=== PATIENT | male | born 1945 | race Caucasian/White ===

== ENCOUNTER → 2018-11-02 | Outpatient (CLI) | payer MEDICARE ==
--- NOTE | 2018-11-02 15:03 | REP ---
Sniff test: Fluoroscopy exam. History: Dyspnea. Findings: PA fluoroscopy is performed. At rest, the left hemidiaphragm is elevated with mild gaseous distension of the gastric fundus. With forceful inspiration, sniffing, both leaves of the diaphragm descend although the right descends more rapidly than the left. There is no evidence of paradoxical motion. Fluoroscopy time is 0.3 minutes. Impression: There is no evidence of diaphragmatic paralysis. The left hemidiaphragm is elevated at rest and moves with decreased amplitude but in an appropriate caudal direction with sniffing. Electronically Signed by Juarez Rodas MD 11/02/2018 04:03 P
--- NOTE | 2018-11-02 15:14 | REP ---
Clinical: Dyspnea. Technique: Axial noncontrast images from the thoracic inlet to the upper abdomen with coronal and sagittal re-formations. Findings: Moderate emphysematous changes are appreciated along with minimal primarily basilar and subpleural chronic interstitial changes and scarring. Small scattered calcified nodules noted throughout the bilateral lung wisdom measuring up to approximately 3 mm small 3 mm noncalcified nodule in the anteroapical left lower lobe (image 33). No consolidation. No effusion. No pneumothorax. No significant adenopathy. Mediastinum demonstrates atherosclerotic changes to the thoracic aorta and coronary arteries without aortic aneurysm or cardiomegaly and no pericardial effusion. Surrounding musculoskeletal structures are intact. Limited upper abdomen demonstrates normal bilateral adrenal glands and gallbladder. Impression: 1. Evidence of mild/moderate emphysematous changes and prior chronic granulomatous disease including scattered small calcified nodules. A single noncalcified nodule measuring 3 mm identified in the apical left lower lobe is identified. No prior examinations are available. Consider 9 - 12 month follow-up. Electronically Signed by Michael Ruiz MD 11/02/2018 03:05 P
== END ==
LOC: M RAD 13:36
PROVIDERS: ATTEND Nurse Practitioner Family
DX: R06.00 Dyspnea, unspecified (principal); J43.9 Emphysema, unspecified; I70.0 Atherosclerosis of aorta; I25.10 Atherosclerotic heart disease of native coronary artery without angina pectoris

== ENCOUNTER → 2019-03-20 | Outpatient (CLI) | payer MEDICARE ==
--- NOTE | 2019-03-20 14:37 | REP ---
REASON: Followup noncalcified nodule in the superior segment of the left lower lobe measuring 3 mm on the prior exam. The lack of intravenous contrast decreases the sensitivity of the exam. Mediastinum and pulmonary hilar are unchanged. There are some prominent mediastinal and hilar lymph nodes, however, they retain their reniform shape and fatty hilum. They are all stable. The imaged upper abdomen and imaged osseous structures are unchanged. There is a 3.3 cm sized right renal cyst status quo. There are multiple left renal cysts. There is no change in the imaged osseous structures. Evaluation of the lung wisdom shows a stable nodule in the superior segment of the left lower lobe, however, by my measurements this is closer to 5 mm. The salient point is the fact that it is stable. There are innumerable scattered bilateral calcified granulomas. In the right upper lobe, there is a 6 mm sized noncalcified nodule which was very perceptible on the prior exam and abutting a vascular structure which gave it the appearance of being part of that vascular structure rather than a true nodule. This area measured 4 mm on the prior exam. There are additional numerable scattered 2 and 3 mm sized noncalcified nodules bilaterally. IMPRESSION: 1. There is a new/enlarging nodule in the right upper lobe as described above. According to the revised Fleischner Society criteria, this represents a category 4X lesion since it may have grown since the prior exam. This warrants further assessment with consideration made for PET/CT at this time and/or tissue sampling. Pulmonary consultation is recommended at this time. 2. Scattered numerable tiny calcified and noncalcified nodules. 3. Other findings as described above. Electronically Signed by Mo Bruno DO 03/20/2019 02:57 P
== END ==
LOC: M RAD 12:44
PROVIDERS: ATTEND Nurse Practitioner Family
DX: N28.1 Cyst of kidney, acquired (principal); R91.1 Solitary pulmonary nodule; R06.00 Dyspnea, unspecified; R91.8 Other nonspecific abnormal finding of lung field

== ENCOUNTER → 2019-10-30 | Outpatient (CLI) | payer MEDICARE ==
[2019-10-30 11:37] LABS: ABG BASE EXCESS -7.8 (-2.0-2.0); ABG FIO2 0; ABG HCO3 15.3 MEQ/L (22.0-26.0); ABG MODE OF VENT 0; ABG O2 LITER FLOW 0; ABG O2 SATURATION 97.8 % (95.0-99.0); ABG PARTIAL PRESSURE CO2 26.1 mmHg (35.0-45.0); ABG PARTIAL PRESSURE O2 109.8 mmHg (75.0-100.0); ABG PATIENT RESP RATE 0 /MIN; ABG PEEP 0; ABG PULSE OX 0; ABG STANDARD HCO3 18.2 MEQ/L (22.0-26.0); ABG TCPCO2 0; ABG TCPO2 0; ABG TIDAL VOLUME 0 cc; ABG TOTAL CO2 16.1 MEQ/L (23.0-31.0); ABG pH (ARTERIAL) 7.386 UNITS (7.350-7.450)
== END ==
LOC: M LAB 11:13
PROVIDERS: ATTEND Nurse Practitioner Family
DX: R06.00 Dyspnea, unspecified (principal)

== ENCOUNTER → 2019-11-04 | Outpatient (REF) | payer MEDICARE ==
[2019-11-04 16:32] LABS: BLOOD UREA NITROGEN 22 MG/DL (7-18); CALCIUM LEVEL 8.8 MG/DL (8.8-10.2); CARBON DIOXIDE LEVEL 31 MEQ/L (21-32); CHLORIDE LEVEL 100 MEQ/L (98-107); CREATININE FOR GFR 1.12 MG/DL (0.70-1.30); GLOMERULAR FILTRATION RATE > 60.0 (>42); GLUCOSE, FASTING 185 MG/DL (70-100); SODIUM LEVEL 136 MEQ/L (136-145)
== END ==
LOC: M LABDRAWC 15:59
PROVIDERS: ATTEND Nurse Practitioner Family
DX: R94.2 Abnormal results of pulmonary function studies (principal)

== ENCOUNTER → 2019-12-10 | Outpatient (CLI) | payer MEDICARE ==
[~2019-12-10] MED LIST: ADV250INH INH; CARD360C PO; CETI10CA13 PO; ELIQ5TAB PO; FINA5TAB2 PO; FLOM0.4C39 PO; FOSI40TA3 PO; GLYCCAP PO; KP F1200 PO; METF850T4 PO; NOXI1TAB PO; SIMV20TA22 PO; VITA-55 PO
--- NOTE | 2019-12-10 14:30 | REP ---
REASON: Followup. All priors were reviewed, the latest of which is 06/18/2019, an outside exam. Lack of intravenous contrast decreases the sensitivity of the exam. Once again, there are multiple borderline but stable-appearing mediastinal and hilar lymph nodes. There are no pleural or pericardial effusions. The imaged upper abdomen and imaged osseous structures are unchanged. Evaluation of the lung wisdom shows multiple stable calcified and noncalcified lymph nodes without evidence of a new abnormal nodule, mass, or opacity. These findings have been stable since 03/20/2019 as well as stable since the latest prior exam. IMPRESSION: Multiple nodules, as described above. According to the revised Fleischner Society criteria, yearly CT is recommended. The nodules represent category 2 lesions. Electronically Signed by Mo Bruno DO 12/10/2019 05:26 P
== END ==
LOC: M RAD 09:23
PROVIDERS: ATTEND Nurse Practitioner Family
DX: R91.8 Other nonspecific abnormal finding of lung field (principal)

== ENCOUNTER → 2019-12-20 | Outpatient (REF) | payer MEDICARE ==
[2019-12-20 12:59] LABS: BLOOD UREA NITROGEN 20 MG/DL (7-18); CALCIUM LEVEL 8.6 MG/DL (8.8-10.2); CARBON DIOXIDE LEVEL 29 MEQ/L (21-32); CHLORIDE LEVEL 101 MEQ/L (98-107); CHOLESTEROL LEVEL 111 MG/DL (<200); CHOLESTEROL RISK RATIO 2.466 (<5); CREATININE FOR GFR 1.06 MG/DL (0.70-1.30); GLOMERULAR FILTRATION RATE > 60.0 (>42); GLUCOSE, FASTING 146 MG/DL (70-100); HDL CHOLESTEROL 45 MG/DL (>40); LDL CHOLESTEROL 51 MG/DL (<100); NON-HDL-C 66 MG/DL; POTASSIUM SERUM 4.4 MEQ/L (3.5-5.1); SODIUM LEVEL 137 MEQ/L (136-145); TRIGLYCERIDES LEVEL 74 MG/DL (<150)
[2019-12-20 13:12] LABS: HEMOGLOBIN A1c 6.4 %
[2019-12-20 13:31] LABS: MALB URINE SIEMENS 77.9 MG/L; MAU/CREAT RATIO 56.4 MCG/MG (0.0-30.0)
== END ==
LOC: M SFHCCLAY 08:54
PROVIDERS: ATTEND Family Medicine
DX: E11.42 Type 2 diabetes mellitus with diabetic polyneuropathy (principal); E78.5 Hyperlipidemia, unspecified

== ENCOUNTER → 2020-02-06 | Outpatient (REF) | payer MEDICARE ==
[2020-02-06 19:53] LABS: HEMATOCRIT 42.4 % (42.0-52.0); HEMOGLOBIN 13.9 g/dl (13.5-17.5); MEAN CORPUSCULAR HEMOGLOBIN 28.6 pg (27.0-33.0); MEAN CORPUSCULAR HGB CONC 32.8 g/dl (32.0-36.5); MEAN CORPUSCULAR VOLUME 87.2 fl (80.0-96.0); PLATELET COUNT, AUTOMATED 241 10^3/uL (150-450); RED BLOOD COUNT 4.86 10^6/uL (4.30-6.10)
[2020-02-06 19:59] LABS: WHITE BLOOD COUNT 16.8 10^3/uL (4.0-10.0)
[2020-02-06 20:26] LABS: ATYPICAL LYMPH 9 % (0-5); BASOPHILS 1 % (0-1); LYMPHOCYTES 70 % (16-44); MONOCYTES 2 % (0-5); NEUTROPHILS 18 % (28-66)
[2020-02-06 20:27] LABS: PLATELET ESTIMATE NORMAL (NORMAL)
== END ==
LOC: M LABDRAWC 19:11
PROVIDERS: ATTEND Family Medicine
DX: D72.829 Elevated white blood cell count, unspecified (principal)

== ENCOUNTER → 2020-06-04 | Outpatient (CLI) | payer MEDICARE | LOC: M LABSMTC 12:05 | PROVIDERS: ATTEND Anesthesiology | DX: Z01.812 Encounter for preprocedural laboratory examination (principal); Z20.828 Contact with and (suspected) exposure to other viral communicable diseases ==

== ENCOUNTER 2020-06-09 06:10 | Day surgery (SDC) | payer MEDICARE ==
[~2020-06-09] VITALS: Ht 172.7 cm; Wt 88.5 kg
[2020-06-09] MEDS ORDERED: LR 1,000 ML IV ONE (07:00)
[2020-06-09] MEDS ORDERED: ceFAZolin SOD 2 GM in IV 1 EA IV ONE (07:00)
[2020-06-09] MEDS ORDERED: BUPIVACAINE HCL 0.25% 10ML VIAL As Ordered ONE (07:12)
[2020-06-09] MEDS ORDERED: LIDOCAINE W/EPINEPHRINE 1% 20ML VIAL As Ordered ONE (07:12)
[2020-06-09] MEDS ORDERED: ALBUTEROL SULFATE 2.5 MG/0.5 ML INH NEB SOLN As Ordered ONE (07:16)
[2020-06-09] MEDS ORDERED: ALBUTEROL SULFATE 2.5 MG/0.5 ML INH NEB SOLN INH ONE (07:30)
[2020-06-09] MEDS ORDERED: PHENYLEPHRINE 10MG/ML 1ML VIAL (J2370 PER 1) As Ordered ONE (07:51)
[2020-06-09] MEDS ORDERED: METOCLOPRAMIDE INJ 10MG/2ML VIAL (J2765 PER 1) As Ordered ONE (07:58)
[2020-06-09] MEDS ORDERED: ONDANSETRON 4MG/2ML VIAL As Ordered ONE (07:58)
[2020-06-09] MEDS ORDERED: fentaNYL 250 MCG/5 ML INJECTION (J3010) As Ordered ONE (07:58)
[2020-06-09] MEDS ORDERED: dexameTHASONE 4 MG/ML 1ML VIAL (J1100 PER 1MG) As Ordered ONE (07:58)
[2020-06-09] MEDS ORDERED: ROCURONIUM BROMIDE 50 MG/5 ML VIAL As Ordered ONE (07:58)
[2020-06-09] MEDS ORDERED: SUGAMMADEX SODIUM 500 MG/5 ML VIAL (BRIDION) As Ordered ONE (07:58)
[2020-06-09] MEDS ORDERED: propofoL 200 MG/20 ML VIAL As Ordered ONE (07:58)
[2020-06-09] MEDS ORDERED: LIDOCAINE 2% 100MG/5ML SDV (FOR ANES.) As Ordered ONE (07:58)
[2020-06-09] MEDS ORDERED: MIDAZOLAM INJ 2MG/2ML VIAL (J2250 PER 1MG) As Ordered ONE (07:58)
--- NOTE | 2020-06-09 09:04 | RO ---
OPERATIVE NOTE DATE OF OPERATION: 06/09/2020 PREOPERATIVE DIAGNOSIS: Right inguinal hernia. POSTOPERATIVE DIAGNOSIS: Right inguinal hernia. PROCEDURE: Robotic-assisted right inguinal hernia repair with ProGrip mesh. SURGEON: Ronn Mendes Jr, MD CUSTOM WOOD STAIR BUILDER: Shirin Canas (provided trocar placement, instrument exchange and mesh placement and trocar site closure). EBL: Minimal. FLUIDS: Crystalloid. DISPOSITION: Patient was taken to recovery room awake, alert, and hemodynamically stable. BRIEF OPERATIVE SUMMARY: The patient was taken to the operating room, was given general anesthesia. After adequate anesthesia and preoperative antibiotics were given the patient was prepped and draped in usual sterile fashion. A supraumbilical incision was made with skin knife. Blunt dissection was carried down to fascia. Fascia was entered with Veress needle and abdomen was insufflated to 15 mm of pressure. A dilating 8 mm trocar was placed at this time and the patient was placed in steep Trendelenburg. The robot was docked after two lateral 8 mm trocars were placed under direct visualization. The peritoneum overlying the right inguinal area was brought down with monopolar cut scissors, combination of blunt and sharp dissection was used to dissect out the peritoneum in this area. Once it was dissected adequately down to Gucci's ligament off the cord structures and the hernia sac which had extended down into the inguinal area was reduced. The ProGrip mesh was cut to the appropriate size, was placed and pressed into position. The abdomen was desufflated down to 8 mm of pressure and the peritoneum was closed over the top of this repair and all trocars were removed under direct visualization. 4-0 Vicryl was used to close all incisions. Steri-Strips and dry, sterile dressing was applied. The patient was awakened, extubated and brought to the recovery room awake, alert and hemodynamically stable. Sponge and needle counts correct x2.
[2020-06-09] MEDS ORDERED: oxyCODONE 5MG TAB As Ordered ONE (09:27)
[2020-06-09] MEDS: oxyCODONE 5MG TAB PO PRN ×2 (09:28→09:58)
[2020-06-09] MEDS ORDERED: NORCO, ANEXSIA 5/325MG TABLET (HYDROcodone/ACETAMINOPHEN) PO PRN (09:30)
[2020-06-09] MEDS ORDERED: LR 1,000 ML IV SCH (09:30)
[2020-06-09] MEDS ORDERED: fentaNYL 100 MCG/2 ML INJECTION (J3010) IV PRN (09:30)
[2020-06-09] MEDS ORDERED: HYDROMORPHONE HCL 0.5 MG/ 0.5 ML SYRINGE (J1170 PER 1) IV PRN (09:30)
[2020-06-09] MEDS ORDERED: ONDANSETRON 4MG/2ML VIAL IV PRN (09:30)
[2020-06-09] MEDS ORDERED: NS 1,000 ML IV SCH (09:30)
[2020-06-09] MEDS ORDERED: PHENYLephrine HCL 500 MCG/5 ML (100MCG/ML) SYRINGE (J2370) As Ordered ONE (09:52)
[2020-06-09 11:20] VITALS: BP 136/76
== END 2020-06-09 11:20 | disposition home or self-care (01) ==
LOC: M SDC 06:10
PROVIDERS: ATTEND Surgery
DX: K40.90 Unilateral inguinal hernia, without obstruction or gangrene, not specified as recurrent (principal); I48.91 Unspecified atrial fibrillation; I10 Essential (primary) hypertension; J44.9 Chronic obstructive pulmonary disease, unspecified; E11.9 Type 2 diabetes mellitus without complications; Z79.01 Long term (current) use of anticoagulants; Z79.84 Long term (current) use of oral hypoglycemic drugs; Z79.899 Other long term (current) drug therapy; Z86.73 Personal history of transient ischemic attack (TIA), and cerebral infarction without residual deficits
CPT/HCPCS: 49650; C1781; J0690; J1100; J2250; J2370; J2405; J2765; J3010; S2900

== ENCOUNTER → 2020-07-22 | Outpatient (REF) | payer MEDICARE ==
[2020-07-22 16:37] LABS: BLOOD UREA NITROGEN 24 MG/DL (7-18); CALCIUM LEVEL 8.5 MG/DL (8.8-10.2); CARBON DIOXIDE LEVEL 30 MEQ/L (21-32); CHLORIDE LEVEL 99 MEQ/L (98-107); CREATININE FOR GFR 1.19 MG/DL (0.70-1.30); GLOMERULAR FILTRATION RATE > 60.0 (>42); GLUCOSE, FASTING 214 MG/DL (70-100); POTASSIUM SERUM 4.4 MEQ/L (3.5-5.1); SODIUM LEVEL 135 MEQ/L (136-145)
[2020-07-22 16:49] LABS: MAU/CREAT RATIO 66.4 MCG/MG (0.0-30.0)
[2020-07-22 17:11] LABS: HEMOGLOBIN A1c 6.8 %
== END ==
LOC: M SFHCCLAY 10:00
PROVIDERS: ATTEND Family Medicine
DX: E11.8 Type 2 diabetes mellitus with unspecified complications (principal)

== ENCOUNTER → 2020-08-21 | Outpatient (REF) | payer MEDICARE ==
[2020-08-21 11:43] LABS: BASO # 0.1 10^3/uL (0.0-0.2); BASO % 0.5 % (0.0-1.0); EOS # 0.7 10^3/uL (0.0-0.5); EOS % 2.6 % (0.0-3.0); HEMATOCRIT 44.2 % (42.0-52.0); HEMOGLOBIN 14.5 g/dl (13.5-17.5); LYMPH # 16.8 10^3/uL (1.5-5.0); LYMPH % 65.3 % (24.0-44.0); MEAN CORPUSCULAR HEMOGLOBIN 28.8 pg (27.0-33.0); MEAN CORPUSCULAR HGB CONC 32.8 g/dl (32.0-36.5); MEAN CORPUSCULAR VOLUME 87.9 fl (80.0-96.0); MONO # 2.3 10^3/uL (0.0-0.8); MONO % 8.9 % (2.0-8.0); NEUTROPHILS # 5.7 10^3/uL (1.5-8.5); NEUTROPHILS % 22.2 % (36.0-66.0); PLATELET COUNT, AUTOMATED 250 10^3/uL (150-450); RED BLOOD COUNT 5.03 10^6/uL (4.30-6.10)
[2020-08-21 11:45] LABS: WHITE BLOOD COUNT 25.7 10^3/uL (4.0-10.0)
[2020-08-21 12:30] LABS: ALT/SGPT 36 U/L (12-78); BILIRUBIN,TOTAL 0.6 MG/DL (0.2-1.0); BLOOD UREA NITROGEN 21 MG/DL (7-18); CALCIUM LEVEL 8.7 MG/DL (8.8-10.2); CARBON DIOXIDE LEVEL 30 MEQ/L (21-32); CHLORIDE LEVEL 102 MEQ/L (98-107); CREATININE FOR GFR 1.09 MG/DL (0.70-1.30); GLOMERULAR FILTRATION RATE > 60.0 (>42); GLUCOSE, FASTING 153 MG/DL (70-100); POTASSIUM SERUM 4.8 MEQ/L (3.5-5.1); SODIUM LEVEL 136 MEQ/L (136-145); TOTAL PROTEIN 7.3 GM/DL (6.4-8.2)
== END ==
LOC: M LABDRAWC 11:18
PROVIDERS: ATTEND Internal Medicine Hematology & Oncology
DX: Z12.89 Encounter for screening for malignant neoplasm of other sites (principal)

== ENCOUNTER → 2020-11-25 | Outpatient (REF) | payer MEDICARE ==
[~2020-11-25] MED LIST changes: +[UNRECOGNIZED DRUG - CODE] PO
[2020-11-25 11:41] LABS: BASO # 0.2 10^3/uL (0.0-0.2); BASO % 0.5 % (0.0-1.0); EOS # 0.5 10^3/uL (0.0-0.5); EOS % 1.8 % (0.0-3.0); HEMATOCRIT 43.2 % (42.0-52.0); HEMOGLOBIN 13.8 g/dl (13.5-17.5); LYMPH # 21.3 10^3/uL (1.5-5.0); LYMPH % 72.5 % (24.0-44.0); MEAN CORPUSCULAR HGB CONC 31.9 g/dl (32.0-36.5); MEAN CORPUSCULAR VOLUME 87.6 fl (80.0-96.0); MONO # 2.1 10^3/uL (0.0-0.8); MONO % 7.1 % (2.0-8.0); NEUTROPHILS # 5.3 10^3/uL (1.5-8.5); NEUTROPHILS % 17.8 % (36.0-66.0); PLATELET COUNT, AUTOMATED 239 10^3/uL (150-450); RED BLOOD COUNT 4.93 10^6/uL (4.30-6.10); WHITE BLOOD COUNT 29.4 10^3/uL (4.0-10.0)
[2020-11-25 12:09] LABS: ALT/SGPT 37 U/L (12-78); BILIRUBIN,TOTAL 0.8 MG/DL (0.2-1.0); BLOOD UREA NITROGEN 19 MG/DL (7-18); CALCIUM LEVEL 8.7 MG/DL (8.8-10.2); CARBON DIOXIDE LEVEL 27 MEQ/L (21-32); CHLORIDE LEVEL 101 MEQ/L (98-107); CREATININE FOR GFR 1.07 MG/DL (0.70-1.30); GLOMERULAR FILTRATION RATE > 60.0 (>42); GLUCOSE, FASTING 144 MG/DL (70-100); POTASSIUM SERUM 4.2 MEQ/L (3.5-5.1); SODIUM LEVEL 133 MEQ/L (136-145); TOTAL PROTEIN 7.6 GM/DL (6.4-8.2)
== END ==
LOC: M LAB REF 11:10
PROVIDERS: ATTEND Internal Medicine Hematology & Oncology
DX: C91.90 Lymphoid leukemia, unspecified not having achieved remission (principal)

== ENCOUNTER → 2020-12-11 | Outpatient (CLI) | payer MEDICARE ==
[~2020-12-11] MED LIST changes: +ALLO100T PO; +CALQ100C PO; -FOSI40TA3 PO; +FOSI40TA59 PO; +IMBR1CAP PO
== END ==
LOC: M PLAIMG 12:56
PROVIDERS: ATTEND Nurse Practitioner Family
DX: R91.8 Other nonspecific abnormal finding of lung field (principal)

== ENCOUNTER → 2020-12-29 | Outpatient (CLI) | payer MEDICARE ==
[~2020-12-29] MED LIST changes: -ALLO100T PO; -CALQ100C PO; +FOSI40TA3 PO; -FOSI40TA59 PO; +GASTROGRAFIN SOLUTION 30ML (Q9963) As Ordered ONE; -IMBR1CAP PO; +ISOVUE-370 76% 100ML VIAL As Ordered ONE; -[UNRECOGNIZED DRUG - CODE] PO
--- NOTE | 2020-12-29 13:42 | REP ---
INDICATION: H/O CLL. COMPARISON: Comparison is made with the study done just 12 days previously on December 11, 2020. Comparison is also made with prior study from December 10, 2019.. TECHNIQUE: Helical scanning is acquired following the intravenous injection of 100 mL of Isovue 370. 3 mm axial images re-formatted. Coronal and sagittal MPR images are provided. FINDINGS: Digital preliminary vice president of software development radiograph is unremarkable. There are numerous bilateral calcified granulomatous nodules in the lung wisdom. There is a 5 mm noncalcified nodule in the left lower lobe superior segment seen on page 09/01/1982 in series 204 of today's study. This is unchanged from December 10, 2019 study. There is a noncalcified 6 mm nodule seen2 in the right upper lobe displayed on page 01/01/1983 series 204. This is unchanged as well. No new noncalcified pulmonary nodule is appreciated. No pleural or pericardial effusion is seen. There is fatty infiltration of the liver. Normal adrenal glands are seen. There is a accessory splenule in the left upper quadrant. There is AP window region mediastinal lymphadenopathy and mild right hilar and precarinal lymphadenopathy. This is slightly more prominent than on the December 10, 2019 study. Bilateral axillary adenopathy is more prominent than on the December 10, 2019 study. This is bilateral. There are scattered small supraclavicular and lower cervical lymph nodes. Vascular calcification is observed. IMPRESSION: There is some progression in bilateral axillary lymphadenopathy when compared with the December 10, 2019 study. AP window region mediastinal lymph nodes are very slightly more prominent. No change from the most recent study of December 11, 2020 <Electronically signed by Octavio Rodas > 12/29/20 [id number]
--- NOTE | 2020-12-29 13:58 | REP ---
INDICATION: H/O CLL. COMPARISON: None. TECHNIQUE: Standard helical technique after the intravenous administration of 100 cc Isovue 370. Oral bowel preparatory contrast was also administered prior to the exam. FINDINGS: The liver, gallbladder, spleen, pancreas, and adrenal glands are within normal limits. There are multiple bilateral renal cysts of various sizes and all having water density Hounsfield unit readings with no measurable contrast-enhancement. There is para-aortic adenopathy with the largest node have a a short axis dimension of 1.5 cm but retaining its fatty hilum. There is a large retrocaval node which measures 2.6 cm long axis by 1 cm short axis and having a reniform shape. Other smaller retroperitoneal lymph nodes are also noted. Multiple nonenlarged lymph nodes are seen in the coco hepatis and there are scattered nonenlarged mesenteric lymph nodes. There is bilateral pelvic sidewall adenopathy with the largest node on the right measuring 3.1 x 1.4 cm and the largest on the left measuring 3.4 x 1.9 cm. There are bilateral prominent inguinal lymph nodes which retain their fatty hilum. The bowel loops are within normal limits. There is sigmoid colon diverticulosis. There is no free fluid or free air. Bone window technique throughout the examination shows chronic changes seen involving the imaged spine. IMPRESSION: 1. Retroperitoneal and pelvic adenopathy as described above. 2. Bilateral renal cysts all having a Bosniak class 1 appearance. 3. Sigmoid colon diverticulosis. 4. Prominent bilateral inguinal lymph nodes as described above. 5. Other findings as described above. <Electronically signed by Mo Bruno > 12/29/20 [id number]
== END ==
LOC: M RAD 11:18
PROVIDERS: ATTEND Internal Medicine
DX: Z85.6 Personal history of leukemia (principal)
CPT/HCPCS: 71260; 74177; Q9963; Q9967

== ENCOUNTER → 2021-01-20 | Outpatient (REF) | payer MEDICARE ==
[~2021-01-20] MED LIST changes: -GASTROGRAFIN SOLUTION 30ML (Q9963) As Ordered ONE; -ISOVUE-370 76% 100ML VIAL As Ordered ONE
[2021-01-20 13:37] LABS: HEMOGLOBIN A1c 6.7 %
[2021-01-20 15:41] LABS: FREE T4 0.88 NG/DL (0.76-1.46); THYROID STIMULATING HORMONE 5.62 uIU/ML (0.358-3.740)
== END ==
LOC: M SFHCCLAY 10:06
PROVIDERS: ATTEND Family Medicine
DX: R53.83 Other fatigue (principal); E11.8 Type 2 diabetes mellitus with unspecified complications

== ENCOUNTER → 2021-01-20 | Outpatient (REF) | payer MEDICARE ==
[2021-01-20 13:05] LABS: BASO # 0.2 10^3/uL (0.0-0.2); BASO % 0.6 % (0.0-1.0); EOS # 0.8 10^3/uL (0.0-0.5); EOS % 2.2 % (0.0-3.0); HEMATOCRIT 43.3 % (42.0-52.0); HEMOGLOBIN 14.1 g/dl (13.5-17.5); LYMPH # 27.4 10^3/uL (1.5-5.0); LYMPH % 71.9 % (24.0-44.0); MEAN CORPUSCULAR HEMOGLOBIN 28.1 pg (27.0-33.0); MEAN CORPUSCULAR HGB CONC 32.6 g/dl (32.0-36.5); MEAN CORPUSCULAR VOLUME 86.4 fl (80.0-96.0); MONO # 3.5 10^3/uL (0.0-0.8); MONO % 9.3 % (2.0-8.0); NEUTROPHILS % 15.7 % (36.0-66.0); PLATELET COUNT, AUTOMATED 247 10^3/uL (150-450); RED BLOOD COUNT 5.01 10^6/uL (4.30-6.10)
[2021-01-20 13:07] LABS: WHITE BLOOD COUNT 38.1 10^3/uL (4.0-10.0)
[2021-01-20 13:42] LABS: ALBUMIN 3.8 GM/DL (3.2-5.2); ALT/SGPT 33 U/L (12-78); BILIRUBIN,TOTAL 0.8 MG/DL (0.2-1.0); BLOOD UREA NITROGEN 18 MG/DL (7-18); CALCIUM LEVEL 8.3 MG/DL (8.8-10.2); CARBON DIOXIDE LEVEL 27 MEQ/L (21-32); CHLORIDE LEVEL 101 MEQ/L (98-107); CREATININE FOR GFR 1.13 MG/DL (0.70-1.30); GLOMERULAR FILTRATION RATE > 60.0 (>42); GLUCOSE, FASTING 140 MG/DL (70-100); LDH LACTATE DEHYDROGENASE 174 U/L (87-241); POTASSIUM SERUM 4.5 MEQ/L (3.5-5.1); SODIUM LEVEL 134 MEQ/L (136-145); TOTAL 25(OH) VITAMIN D 33.1 NG/ML (30.0-100.0); TOTAL PROTEIN 7.7 GM/DL (6.4-8.2)
== END ==
LOC: M LABDRAWC 11:25
PROVIDERS: ATTEND Internal Medicine Hematology & Oncology
DX: C85.10 Unspecified B-cell lymphoma, unspecified site (principal); Z79.899 Other long term (current) drug therapy

== ENCOUNTER → 2021-02-16 | Outpatient (REF) | payer MEDICARE ==
[~2021-02-16] MED LIST changes: +CALQ100C PO; +[UNRECOGNIZED DRUG - CODE] PO
[2021-02-16 12:05] LABS: BASO # 0.2 10^3/uL (0.0-0.2); BASO % 0.4 % (0.0-1.0); EOS # 0.9 10^3/uL (0.0-0.5); HEMATOCRIT 43.5 % (42.0-52.0); HEMOGLOBIN 13.9 g/dl (13.5-17.5); LYMPH # 34.3 10^3/uL (1.5-5.0); LYMPH % 75.4 % (24.0-44.0); MEAN CORPUSCULAR VOLUME 87.5 fl (80.0-96.0); MONO # 4.2 10^3/uL (0.0-0.8); MONO % 9.3 % (2.0-8.0); NEUTROPHILS # 5.7 10^3/uL (1.5-8.5); NEUTROPHILS % 12.6 % (36.0-66.0); PLATELET COUNT, AUTOMATED 253 10^3/uL (150-450); RED BLOOD COUNT 4.97 10^6/uL (4.30-6.10)
[2021-02-16 12:23] LABS: WHITE BLOOD COUNT 45.5 10^3/uL (4.0-10.0)
[2021-02-16 12:38] LABS: ALBUMIN 3.6 GM/DL (3.2-5.2); ALT/SGPT 30 U/L (12-78); BILIRUBIN,TOTAL 0.6 MG/DL (0.2-1.0); BLOOD UREA NITROGEN 18 MG/DL (7-18); CALCIUM LEVEL 8.7 MG/DL (8.8-10.2); CARBON DIOXIDE LEVEL 27 MEQ/L (21-32); CHLORIDE LEVEL 100 MEQ/L (98-107); CREATININE FOR GFR 1.08 MG/DL (0.70-1.30); GLOMERULAR FILTRATION RATE > 60.0 (>42); GLUCOSE, FASTING 148 MG/DL (70-100); POTASSIUM SERUM 4.7 MEQ/L (3.5-5.1); SODIUM LEVEL 134 MEQ/L (136-145); TOTAL PROTEIN 7.5 GM/DL (6.4-8.2)
== END ==
LOC: M LABDRAWC 11:32
PROVIDERS: ATTEND Internal Medicine Hematology & Oncology
DX: C85.10 Unspecified B-cell lymphoma, unspecified site (principal)

== ENCOUNTER → 2021-03-17 | Outpatient (REF) | payer MEDICARE ==
[2021-03-18 11:33] LABS: BASO # 0.1 10^3/uL (0.0-0.2); BASO % 0.3 % (0.0-1.0); EOS % 4.7 % (0.0-3.0); HEMATOCRIT 41.3 % (42.0-52.0); LYMPH # 29.7 10^3/uL (1.5-5.0); LYMPH % 71.4 % (24.0-44.0); MEAN CORPUSCULAR HEMOGLOBIN 28.3 pg (27.0-33.0); MEAN CORPUSCULAR HGB CONC 31.5 g/dl (32.0-36.5); MEAN CORPUSCULAR VOLUME 89.8 fl (80.0-96.0); MONO # 3.6 10^3/uL (0.0-0.8); MONO % 8.7 % (2.0-8.0); NEUTROPHILS # 6.1 10^3/uL (1.5-8.5); NEUTROPHILS % 14.6 % (36.0-66.0); PLATELET COUNT, AUTOMATED 229 10^3/uL (150-450)
[2021-03-18 11:38] LABS: WHITE BLOOD COUNT 41.6 10^3/uL (4.0-10.0)
[2021-03-18 12:32] LABS: ALBUMIN 3.7 GM/DL (3.2-5.2); ALT/SGPT 30 U/L (12-78); BILIRUBIN,TOTAL 0.5 MG/DL (0.2-1.0); BLOOD UREA NITROGEN 23 MG/DL (7-18); CALCIUM LEVEL 8.8 MG/DL (8.8-10.2); CARBON DIOXIDE LEVEL 26 MEQ/L (21-32); CHLORIDE LEVEL 102 MEQ/L (98-107); CREATININE FOR GFR 1.23 MG/DL (0.70-1.30); GLOMERULAR FILTRATION RATE > 60.0 (>42); GLUCOSE, FASTING 120 MG/DL (70-100); POTASSIUM SERUM 4.6 MEQ/L (3.5-5.1); SODIUM LEVEL 137 MEQ/L (136-145); TOTAL PROTEIN 7.8 GM/DL (6.4-8.2)
== END ==
LOC: M LABDRAWC 11:13
PROVIDERS: ATTEND Internal Medicine Hematology & Oncology
DX: C91.10 Chronic lymphocytic leukemia of B-cell type not having achieved remission (principal); Z79.899 Other long term (current) drug therapy

== ENCOUNTER → 2021-03-22 | Outpatient (CLI) | payer MEDICARE | LOC: M LABSMTC 09:43 | PROVIDERS: ATTEND Pediatrics | DX: Z20.822 Contact with and (suspected) exposure to COVID-19 (principal) | CPT/HCPCS: C9803; U0003 ==

== ENCOUNTER → 2021-03-22 | Outpatient (CLI) | payer MEDICARE ==
--- NOTE | 2021-03-22 12:41 | REP ---
INDICATION: B CELL LYMPHOMA COMPARISON: 05/20/2020. TECHNIQUE: PA/Lateral FINDINGS: Lungs: Clear, no infiltrate. There is mild elevation of the left hemidiaphragm unchanged. Heart: Normal in size. Mediastinum: Mediastinal silhouette unremarkable and unchanged. Pleural angles: Unremarkable.. Bones and soft tissues: Unremarkable. IMPRESSION: No acute pulmonary disease. <Electronically signed by Aric Ruff > 03/22/21 [id number]
== END ==
LOC: M CLY 11:10
PROVIDERS: ATTEND Internal Medicine Hematology & Oncology
DX: C91.10 Chronic lymphocytic leukemia of B-cell type not having achieved remission (principal)

== ENCOUNTER → 2021-05-04 | Outpatient (REF) | payer MEDICARE ==
[~2021-05-04] MED LIST changes: +ALLO100T PO; -FOSI40TA3 PO; +FOSI40TA59 PO; +IMBR1CAP PO
[2021-05-04 12:13] LABS: BASO # 0.2 10^3/uL (0.0-0.2); BASO % 0.5 % (0.0-1.0); EOS # 0.9 10^3/uL (0.0-0.5); HEMATOCRIT 43.6 % (42.0-52.0); HEMOGLOBIN 13.8 g/dl (13.5-17.5); LYMPH # 34.9 10^3/uL (1.5-5.0); LYMPH % 76.8 % (24.0-44.0); MEAN CORPUSCULAR HEMOGLOBIN 27.8 pg (27.0-33.0); MEAN CORPUSCULAR HGB CONC 31.7 g/dl (32.0-36.5); MEAN CORPUSCULAR VOLUME 87.9 fl (80.0-96.0); MONO % 8.7 % (2.0-8.0); NEUTROPHILS # 5.3 10^3/uL (1.5-8.5); NEUTROPHILS % 11.7 % (36.0-66.0); PLATELET COUNT, AUTOMATED 220 10^3/uL (150-450); RED BLOOD COUNT 4.96 10^6/uL (4.30-6.10)
[2021-05-04 12:23] LABS: WHITE BLOOD COUNT 45.5 10^3/uL (4.0-10.0)
[2021-05-04 12:29] LABS: ALBUMIN 3.7 GM/DL (3.2-5.2); ALT/SGPT 25 U/L (12-78); BILIRUBIN,TOTAL 0.8 MG/DL (0.2-1.0); BLOOD UREA NITROGEN 19 MG/DL (7-18); CALCIUM LEVEL 8.8 MG/DL (8.8-10.2); CARBON DIOXIDE LEVEL 30 MEQ/L (21-32); CHLORIDE LEVEL 98 MEQ/L (98-107); CREATININE FOR GFR 1.13 MG/DL (0.70-1.30); GLOMERULAR FILTRATION RATE > 60.0 (>42); GLUCOSE, FASTING 227 MG/DL (70-100); IMMUNOGLOBULIN G 1850 MG/DL (681-1648); LDH LACTATE DEHYDROGENASE 166 U/L (87-241); POTASSIUM SERUM 4.4 MEQ/L (3.5-5.1); SODIUM LEVEL 134 MEQ/L (136-145); TOTAL PROTEIN 7.7 GM/DL (6.4-8.2)
== END ==
LOC: M LABDRAWC 11:26
PROVIDERS: ATTEND Internal Medicine Hematology & Oncology
DX: C91.10 Chronic lymphocytic leukemia of B-cell type not having achieved remission (principal)

== ENCOUNTER → 2021-07-02 | Outpatient (REF) | payer MEDICARE | LOC: M LABDRAWC 15:36 | PROVIDERS: ATTEND Internal Medicine Hematology & Oncology | DX: C91.10 Chronic lymphocytic leukemia of B-cell type not having achieved remission (principal) ==

== ENCOUNTER → 2021-07-08 | Outpatient (CLI) | payer MEDICARE | LOC: M RAD 09:53 | PROVIDERS: ATTEND Nurse Practitioner Family | DX: R91.8 Other nonspecific abnormal finding of lung field (principal); J98.4 Other disorders of lung ==

== ENCOUNTER → 2021-07-09 | Outpatient (REF) | payer MEDICARE ==
[2021-07-09 12:32] LABS: BLOOD UREA NITROGEN 18 MG/DL (7-18); CALCIUM LEVEL 8.4 MG/DL (8.8-10.2); CARBON DIOXIDE LEVEL 27 MEQ/L (21-32); CHLORIDE LEVEL 100 MEQ/L (98-107); CHOLESTEROL LEVEL 106 MG/DL (<200); CHOLESTEROL RISK RATIO 2.864 (<5); CREATININE FOR GFR 1.09 MG/DL (0.70-1.30); GLOMERULAR FILTRATION RATE > 60.0 (>42); GLUCOSE, FASTING 153 MG/DL (70-100); HDL CHOLESTEROL 37 MG/DL (>40); LDL CHOLESTEROL 47 MG/DL (<100); NON-HDL-C 69 MG/DL; POTASSIUM SERUM 4.3 MEQ/L (3.5-5.1); SODIUM LEVEL 132 MEQ/L (136-145); TRIGLYCERIDES LEVEL 111 MG/DL (<150)
[2021-07-09 12:59] LABS: HEMOGLOBIN A1c 6.9 %
[2021-07-09 13:01] LABS: MAU/CREAT RATIO 504.4 MCG/MG (0.0-30.0)
== END ==
LOC: M SFHCCLAY 08:17
PROVIDERS: ATTEND Family Medicine
DX: E11.8 Type 2 diabetes mellitus with unspecified complications (principal)

== ENCOUNTER → 2021-07-30 | Outpatient (REF) | payer MEDICARE ==
[2021-07-30 17:17] LABS: BASO # 0.2 10^3/uL (0.0-0.2); BASO % 0.1 % (0.0-1.0); EOS # 0.8 10^3/uL (0.0-0.5); EOS % 0.7 % (0.0-3.0); HEMATOCRIT 44.7 % (42.0-52.0); HEMOGLOBIN 13.6 g/dl (13.5-17.5); LYMPH # 102.8 10^3/uL (1.5-5.0); LYMPH % 89.8 % (24.0-44.0); MEAN CORPUSCULAR HEMOGLOBIN 27.2 pg (27.0-33.0); MEAN CORPUSCULAR HGB CONC 30.4 g/dl (32.0-36.5); MEAN CORPUSCULAR VOLUME 89.4 fl (80.0-96.0); MONO % 2.3 % (2.0-8.0); NEUTROPHILS # 7.8 10^3/uL (1.5-8.5); NEUTROPHILS % 6.8 % (36.0-66.0); PLATELET COUNT, AUTOMATED 204 10^3/uL (150-450)
[2021-07-30 17:20] LABS: MONO # 2.6 10^3/uL (0.0-0.8); WHITE BLOOD COUNT 114.4 10^3/uL (4.0-10.0)
[2021-07-30 17:36] LABS: ALBUMIN 3.8 GM/DL (3.2-5.2); ALT/SGPT 20 U/L (12-78); BILIRUBIN,TOTAL 1.1 MG/DL (0.2-1.0); BLOOD UREA NITROGEN 15 MG/DL (7-18); CALCIUM LEVEL 8.7 MG/DL (8.8-10.2); CARBON DIOXIDE LEVEL 30 MEQ/L (21-32); CHLORIDE LEVEL 95 MEQ/L (98-107); CREATININE FOR GFR 1.22 MG/DL (0.70-1.30); GLOMERULAR FILTRATION RATE > 60.0 (>42); GLUCOSE, FASTING 270 MG/DL (70-100); POTASSIUM SERUM 3.9 MEQ/L (3.5-5.1); SODIUM LEVEL 130 MEQ/L (136-145); TOTAL PROTEIN 8.2 GM/DL (6.4-8.2); URIC ACID 5.4 MG/DL (3.5-7.2)
== END ==
LOC: M LAB REF 15:47
PROVIDERS: ATTEND Specialist
DX: C91.10 Chronic lymphocytic leukemia of B-cell type not having achieved remission (principal)

== ENCOUNTER → 2021-09-03 | Outpatient (REF) | payer MEDICARE ==
[2021-09-03 12:23] LABS: BASO # 0.3 10^3/uL (0.0-0.2); BASO % 0.1 % (0.0-1.0); EOS # 0.7 10^3/uL (0.0-0.5); EOS % 0.3 % (0.0-3.0); HEMATOCRIT 38.8 % (42.0-52.0); HEMOGLOBIN 11.5 g/dl (13.5-17.5); LYMPH # 214.4 10^3/uL (1.5-5.0); LYMPH % 96.1 % (24.0-44.0); MEAN CORPUSCULAR HEMOGLOBIN 27.6 pg (27.0-33.0); MEAN CORPUSCULAR HGB CONC 29.6 g/dl (32.0-36.5); MEAN CORPUSCULAR VOLUME 93.3 fl (80.0-96.0); MONO % 1.1 % (2.0-8.0); NEUTROPHILS # 4.9 10^3/uL (1.5-8.5); NEUTROPHILS % 2.2 % (36.0-66.0); PLATELET COUNT, AUTOMATED 185 10^3/uL (150-450); RED BLOOD COUNT 4.16 10^6/uL (4.30-6.10)
[2021-09-03 12:31] LABS: ALBUMIN 3.5 GM/DL (3.2-5.2); ALT/SGPT 22 U/L (12-78); BILIRUBIN,TOTAL 0.8 MG/DL (0.2-1.0); BLOOD UREA NITROGEN 22 MG/DL (7-18); CALCIUM LEVEL 8.2 MG/DL (8.8-10.2); CARBON DIOXIDE LEVEL 31 MEQ/L (21-32); CHLORIDE LEVEL 97 MEQ/L (98-107); CREATININE FOR GFR 1.02 MG/DL (0.70-1.30); GLOMERULAR FILTRATION RATE > 60.0 (>42); GLUCOSE, FASTING 212 MG/DL (70-100); SODIUM LEVEL 132 MEQ/L (136-145); TOTAL PROTEIN 7.4 GM/DL (6.4-8.2); URIC ACID 5.6 MG/DL (3.5-7.2)
[2021-09-03 12:47] LABS: WHITE BLOOD COUNT 223.1 10^3/uL (4.0-10.0)
[2021-09-03 12:48] LABS: MONO # 2.5 10^3/uL (0.0-0.8)
== END ==
LOC: M LABDRAWC 11:30
PROVIDERS: ATTEND Specialist
DX: C91.10 Chronic lymphocytic leukemia of B-cell type not having achieved remission (principal)

== ENCOUNTER → 2021-09-17 | Outpatient (REF) | payer MEDICARE ==
[2021-09-17 11:41] LABS: BASO # 0.3 10^3/uL (0.0-0.2); BASO % 0.1 % (0.0-1.0); EOS # 0.5 10^3/uL (0.0-0.5); EOS % 0.2 % (0.0-3.0); HEMOGLOBIN 11.9 g/dl (13.5-17.5); LYMPH # 240.2 10^3/uL (1.5-5.0); LYMPH % 95.8 % (24.0-44.0); MEAN CORPUSCULAR HEMOGLOBIN 27.3 pg (27.0-33.0); MONO % 1.4 % (2.0-8.0); NEUTROPHILS # 5.8 10^3/uL (1.5-8.5); NEUTROPHILS % 2.3 % (36.0-66.0); PLATELET COUNT, AUTOMATED 245 10^3/uL (150-450); RED BLOOD COUNT 4.36 10^6/uL (4.30-6.10)
[2021-09-17 12:06] LABS: WHITE BLOOD COUNT 250.8 10^3/uL (4.0-10.0)
[2021-09-17 12:07] LABS: MONO # 3.6 10^3/uL (0.0-0.8)
== END ==
LOC: M LABDRAWC 11:17
PROVIDERS: ATTEND Internal Medicine Hematology & Oncology
DX: C91.10 Chronic lymphocytic leukemia of B-cell type not having achieved remission (principal)

== ENCOUNTER → 2021-10-19 | Outpatient (REF) | payer MEDICARE ==
[2021-10-19 16:28] LABS: HEMOGLOBIN A1c 6.4 %
[2021-10-19 16:36] LABS: BLOOD UREA NITROGEN 16 MG/DL (7-18); CALCIUM LEVEL 8.7 MG/DL (8.8-10.2); CARBON DIOXIDE LEVEL 29 MEQ/L (21-32); CHLORIDE LEVEL 100 MEQ/L (98-107); CREATININE FOR GFR 1.03 MG/DL (0.70-1.30); GLOMERULAR FILTRATION RATE > 60.0 (>42); GLUCOSE, FASTING 172 MG/DL (70-100); POTASSIUM SERUM 3.8 MEQ/L (3.5-5.1); SODIUM LEVEL 135 MEQ/L (136-145)
== END ==
LOC: M SFHCCLAY 10:32
PROVIDERS: ATTEND Family Medicine
DX: E11.8 Type 2 diabetes mellitus with unspecified complications (principal)

== ENCOUNTER 2021-10-27 15:55 | Emergency (ER) | payer MEDICARE ==
[~2021-10-27] VITALS: Ht 172.7 cm; Wt 85.9 kg
[2021-10-27 15:55] VITALS: BP 154/79
[~2021-10-27 15:55] MED LIST changes: -LEVOTAB10
[2021-10-27] MEDS ORDERED: LEVOTAB10 (16:25)
== END 2021-10-27 18:04 | disposition left against medical advice (07) ==
LOC: M ED 15:55
DX: Z53.21 Procedure and treatment not carried out due to patient leaving prior to being seen by health care provider (principal)

== ENCOUNTER → 2021-10-27 | Outpatient (REF) | payer MEDICARE ==
[~2021-10-27] MED LIST changes: +LEVOTAB10
[2021-10-29 12:25] LABS: AMORPHOUS SEDIMENT SMALL (NEGATIVE); APPEARANCE, URINE TURBID (CLEAR); BACTERIA, URINE AUTO NEGATIVE (NEGATIVE); BILIRUBIN, URINE AUTO NEGATIVE (NEGATIVE); BLOOD, URINE BLOOD 3+ (NEGATIVE); CALCIUM OXALATE CRYSTALS MODERATE; COLOR, URINE AMBER (YELLOW); GLUCOSE, URINE (UA) AUTO 1+ mg/dL (NEGATIVE); KETONE, URINE AUTO TRACE mg/dL (NEGATIVE); LEUKOCYTE ESTERASE, URINE AUTO NEGATIVE (NEGATIVE); MUCUS, URINE MODERATE (NEGATIVE); NITRITE, URINE AUTO NEGATIVE (NEGATIVE); PROTEIN, URINE AUTO 2+ mg/dL (NEGATIVE); RBC, URINE AUTO TNTC /HPF (0-3); SPECIFIC GRAVITY URINE AUTO 1.025 (1.002-1.035); SQUAMOUS EPITHELIAL CELL UR AU 0 /HPF (0-6); WBC, URINE AUTO 9 /HPF (0-3)
== END ==
LOC: M SFHCCLAY 11:58
PROVIDERS: ATTEND Family Medicine
DX: R31.9 Hematuria, unspecified (principal)

== ENCOUNTER → 2021-11-09 | Outpatient (REF) | payer MEDICARE ==
[~2021-11-09] MED LIST changes: +LEVOTAB10
[2021-11-09 13:24] LABS: APPEARANCE, URINE HAZY (CLEAR); BACTERIA, URINE AUTO NEGATIVE (NEGATIVE); BILIRUBIN, URINE AUTO NEGATIVE (NEGATIVE); BLOOD, URINE BLOOD NEGATIVE (NEGATIVE); CALCIUM OXALATE CRYSTALS MODERATE; COLOR, URINE YELLOW (YELLOW); GLUCOSE, URINE (UA) AUTO NEGATIVE (NEGATIVE); KETONE, URINE AUTO NEGATIVE (NEGATIVE); LEUKOCYTE ESTERASE, URINE AUTO NEGATIVE (NEGATIVE); MUCUS, URINE SMALL (NEGATIVE); NITRITE, URINE AUTO NEGATIVE (NEGATIVE); PROTEIN, URINE AUTO 1+ mg/dL (NEGATIVE); RBC, URINE AUTO 0 /HPF (0-3); SPECIFIC GRAVITY URINE AUTO 1.025 (1.002-1.035); SQUAMOUS EPITHELIAL CELL UR AU 0 /HPF (0-6); UROBILINOGEN, URINE AUTO 0.2 mg/dL (0.0-2.0); WBC, URINE AUTO 1 /HPF (0-3)
== END ==
LOC: M SMT 12:51
PROVIDERS: ATTEND Physician Assistant
DX: R31.0 Gross hematuria (principal)

== ENCOUNTER → 2021-11-09 | Outpatient (REF) | payer MEDICARE ==
[2021-11-10 12:05] LABS: BLOOD UREA NITROGEN 23 MG/DL (7-18); CALCIUM LEVEL 8.7 MG/DL (8.8-10.2); CARBON DIOXIDE LEVEL 28 MEQ/L (21-32); CHLORIDE LEVEL 101 MEQ/L (98-107); CREATININE FOR GFR 1.24 MG/DL (0.70-1.30); GLOMERULAR FILTRATION RATE > 60.0 (>42); GLUCOSE, FASTING 186 MG/DL (70-100); POTASSIUM SERUM 3.8 MEQ/L (3.5-5.1); SODIUM LEVEL 133 MEQ/L (136-145)
== END ==
LOC: M SFHCCLAY 15:01
PROVIDERS: ATTEND Physician Assistant
DX: R31.0 Gross hematuria (principal); N40.1 Benign prostatic hyperplasia with lower urinary tract symptoms

== ENCOUNTER → 2021-12-27 | Outpatient (REF) | payer MEDICARE ==
[~2021-12-27] MED LIST changes: +VITA-10 PO; -[UNRECOGNIZED DRUG - CODE] PO
[2021-12-27 12:52] LABS: BASO # 0.2 10^3/uL (0.0-0.2); BASO % 0.1 % (0.0-1.0); EOS # 1.5 10^3/uL (0.0-0.5); EOS % 1.2 % (0.0-3.0); HEMATOCRIT 40.6 % (42.0-52.0); HEMOGLOBIN 12.3 g/dl (13.5-17.5); LYMPH # 114.5 10^3/uL (1.5-5.0); LYMPH % 92.5 % (24.0-44.0); MEAN CORPUSCULAR HEMOGLOBIN 27.5 pg (27.0-33.0); MEAN CORPUSCULAR HGB CONC 30.3 g/dl (32.0-36.5); MEAN CORPUSCULAR VOLUME 90.6 fl (80.0-96.0); MONO # 1.3 10^3/uL (0.0-0.8); MONO % 1.1 % (2.0-8.0); NEUTROPHILS % 4.9 % (36.0-66.0); PLATELET COUNT, AUTOMATED 223 10^3/uL (150-450); RED BLOOD COUNT 4.48 10^6/uL (4.30-6.10)
[2021-12-27 12:57] LABS: WHITE BLOOD COUNT 123.7 10^3/uL (4.0-10.0)
[2021-12-27 14:19] LABS: ALBUMIN 3.4 GM/DL (3.2-5.2); ALT/SGPT 21 U/L (12-78); BILIRUBIN,TOTAL 0.9 MG/DL (0.2-1.0); BLOOD UREA NITROGEN 24 MG/DL (7-18); CALCIUM LEVEL 8.5 MG/DL (8.8-10.2); CARBON DIOXIDE LEVEL 25 MEQ/L (21-32); CHLORIDE LEVEL 101 MEQ/L (98-107); CREATININE FOR GFR 1.16 MG/DL (0.70-1.30); GLOMERULAR FILTRATION RATE > 60.0 (>42); GLUCOSE, FASTING 125 MG/DL (70-100); POTASSIUM SERUM 4.1 MEQ/L (3.5-5.1); SODIUM LEVEL 135 MEQ/L (136-145); TOTAL PROTEIN 7.5 GM/DL (6.4-8.2)
== END ==
LOC: M LABDRAWC 11:49
PROVIDERS: ATTEND Internal Medicine Hematology & Oncology
DX: C91.10 Chronic lymphocytic leukemia of B-cell type not having achieved remission (principal)

== ENCOUNTER → 2022-02-22 | Outpatient (REF) | payer MEDICARE ==
[2022-02-22 17:51] LABS: CHOLESTEROL RISK RATIO 1.962 (<5)
[2022-02-22 19:39] LABS: HEMOGLOBIN A1c 6.6 %
== END ==
LOC: M SFHCCLAY 10:53
PROVIDERS: ATTEND Nurse Practitioner Family
DX: E11.8 Type 2 diabetes mellitus with unspecified complications (principal); E78.5 Hyperlipidemia, unspecified

== ENCOUNTER → 2022-03-18 | Outpatient (REF) | payer MEDICARE | LOC: M SFHCCLAY 10:02 | PROVIDERS: ATTEND Nurse Practitioner Family | DX: L08.9 Local infection of the skin and subcutaneous tissue, unspecified (principal) ==

== ENCOUNTER → 2022-03-25 | Outpatient (REF) | payer MEDICARE ==
[~2022-03-25] MED LIST changes: +CLIN150C17
[2022-03-25 12:00] LABS: BASO # 0.1 10^3/uL (0.0-0.2); BASO % 0.2 % (0.0-1.0); EOS # 0.5 10^3/uL (0.0-0.5); EOS % 1.1 % (0.0-3.0); HEMOGLOBIN 12.6 g/dl (13.5-17.5); LYMPH # 40.9 10^3/uL (1.5-5.0); LYMPH % 82.7 % (24.0-44.0); MEAN CORPUSCULAR HEMOGLOBIN 27.9 pg (27.0-33.0); MEAN CORPUSCULAR HGB CONC 31.5 g/dl (32.0-36.5); MEAN CORPUSCULAR VOLUME 88.5 fl (80.0-96.0); MONO # 1.5 10^3/uL (0.0-0.8); NEUTROPHILS # 6.3 10^3/uL (1.5-8.5); NEUTROPHILS % 12.8 % (36.0-66.0); PLATELET COUNT, AUTOMATED 241 10^3/uL (150-450); RED BLOOD COUNT 4.52 10^6/uL (4.30-6.10)
[2022-03-25 12:12] LABS: WHITE BLOOD COUNT 49.5 10^3/uL (4.0-10.0)
[2022-03-25 12:54] LABS: ALBUMIN 3.5 GM/DL (3.2-5.2); ALT/SGPT 17 U/L (12-78); BILIRUBIN,TOTAL 0.9 MG/DL (0.2-1.0); BLOOD UREA NITROGEN 18 MG/DL (7-18); CALCIUM LEVEL 8.8 MG/DL (8.8-10.2); CARBON DIOXIDE LEVEL 28 MEQ/L (21-32); CHLORIDE LEVEL 98 MEQ/L (98-107); CREATININE FOR GFR 1.03 MG/DL (0.70-1.30); GLOMERULAR FILTRATION RATE > 60.0 (>42); GLUCOSE, FASTING 128 MG/DL (70-100); POTASSIUM SERUM 4.5 MEQ/L (3.5-5.1); SODIUM LEVEL 132 MEQ/L (136-145); TOTAL PROTEIN 7.5 GM/DL (6.4-8.2)
== END ==
LOC: M LABDRAWC 11:23
PROVIDERS: ATTEND Internal Medicine Hematology & Oncology
DX: C91.10 Chronic lymphocytic leukemia of B-cell type not having achieved remission (principal)

== ENCOUNTER → 2022-04-01 | Outpatient (REF) | payer MEDICARE | LOC: M SFHCCLAY 13:37 | PROVIDERS: ATTEND Nurse Practitioner Family | DX: L08.9 Local infection of the skin and subcutaneous tissue, unspecified (principal) ==

== ENCOUNTER 2022-05-25 11:18 | Observation (INO) | payer MEDICARE ==
[~2022-05-25] VITALS: Ht 172.7 cm; Wt 83.8 kg
[~2022-05-25 11:18] MED LIST changes: -LEVOTAB10; +LEVOTAB10 PO
[2022-05-25 13:28] LABS: HEMATOCRIT 37.4 % (42.0-52.0); HEMOGLOBIN 11.6 g/dl (13.5-17.5); MEAN CORPUSCULAR HEMOGLOBIN 27.7 pg (27.0-33.0); MEAN CORPUSCULAR VOLUME 89.3 fl (80.0-96.0); PLATELET COUNT, AUTOMATED 219 10^3/uL (150-450); RED BLOOD COUNT 4.19 10^6/uL (4.30-6.10); WHITE BLOOD COUNT 29.2 10^3/uL (4.0-10.0)
[2022-05-25 13:55] LABS: CK-MB VALUE MASS 1.9 NG/ML (<3.6)
[2022-05-25 13:56] LABS: MAGNESIUM LEVEL 1.8 MG/DL (1.8-2.4)
[2022-05-25 13:57] LABS: BLOOD UREA NITROGEN 27 MG/DL (9-23); CALCIUM LEVEL 8.3 MG/DL (8.3-10.6); CARBON DIOXIDE LEVEL 26 MMOL/L (20-31); CHLORIDE LEVEL 98 MMOL/L (98-107); CREATININE FOR GFR 0.86 MG/DL (0.70-1.30); GLOMERULAR FILTRATION RATE > 60.0 (>42); GLUCOSE, FASTING 151 MG/DL (74-106); POTASSIUM SERUM 4.2 MMOL/L (3.5-5.1); SODIUM LEVEL 135 MMOL/L (136-145)
[2022-05-25 13:59] LABS: FREE T4 1.06 NG/DL (0.89-1.76); RSV AMPLIFICATION NEGATIVE (NEGATIVE)
[2022-05-25 14:00] LABS: THYROID STIMULATING HORMONE 6.025 uIU/ML (0.55-4.78)
[2022-05-25 14:05] LABS: CPK CREATINE PHOSPHOKINASE 77 U/L (46-171); MB/CK RELATIVE INDEX 2.46 (< OR =4)
[2022-05-25] MEDS ORDERED: NS 500 ML IV ONE (14:15)
[2022-05-25 14:25] LABS: ANISOCYTOSIS 1+; ATYPICAL LYMPH 1 % (0-5); EOSINOPHILS 1 % (0-3); LYMPHOCYTES 66 % (16-44); MONOCYTES 3 % (0-5); NEUTROPHILS 29 % (28-66); PLATELET ESTIMATE NORMAL (NORMAL)
[2022-05-25 14:26] LABS: OVALOCYTES 1+
[2022-05-25] MEDS ORDERED: ALLO100T PO (15:54)
[2022-05-25] MEDS ORDERED: FLON1SPR (15:54)
[2022-05-25] MEDS ORDERED: IMBR1CAP PO (15:54)
[2022-05-25] MEDS ORDERED: GLUCOSE 4GM CHEW TABLET PO PRN (16:05)
[2022-05-25] MEDS ORDERED: DEXTROSE 50% 50ML SYRINGE IV PRN (16:05)
[2022-05-25] MEDS ORDERED: GLUCAGON INJ 1MG VIAL SC PRN (16:05)
[2022-05-25] MEDS ORDERED: HOME MED LIST COMPLETE! XX SCH (16:10)
[2022-05-25] MEDS: INSULIN LISPRO (NovoLOG) PER UNIT SC SCH (17:30)
[2022-05-25] MEDS ORDERED: INSULIN LISPRO (NovoLOG) PER UNIT SC SCH (21:00)
[2022-05-25] MEDS ORDERED: TAMSULOSIN 0.4 MG CAP PO SCH (21:00)
[2022-05-25] MEDS ORDERED: ROSUVASTATIN 10 MG TAB (CRESTOR) PO SCH (21:00)
[2022-05-25] MEDS: APIXABAN 5 MG TAB (ELIQUIS) PO SCH (21:44)
[2022-05-25 22:03] VITALS: BP 162/94
[2022-05-26 00:48] VITALS: BP 146/86
[2022-05-26 04:44] VITALS: BP 124/76
[2022-05-26 06:04] LABS: HEMATOCRIT 35.8 % (42.0-52.0); HEMOGLOBIN 11.2 g/dl (13.5-17.5); MEAN CORPUSCULAR HEMOGLOBIN 27.3 pg (27.0-33.0); MEAN CORPUSCULAR HGB CONC 31.3 g/dl (32.0-36.5); MEAN CORPUSCULAR VOLUME 87.1 fl (80.0-96.0); PLATELET COUNT, AUTOMATED 224 10^3/uL (150-450); RED BLOOD COUNT 4.11 10^6/uL (4.30-6.10); WHITE BLOOD COUNT 24.2 10^3/uL (4.0-10.0)
[2022-05-26 06:23] LABS: BLOOD UREA NITROGEN 19 MG/DL (9-23); CALCIUM LEVEL 8.3 MG/DL (8.3-10.6); CARBON DIOXIDE LEVEL 27 MMOL/L (20-31); CHLORIDE LEVEL 100 MMOL/L (98-107); CREATININE FOR GFR 0.75 MG/DL (0.70-1.30); GLOMERULAR FILTRATION RATE > 60.0 (>42); GLUCOSE, FASTING 154 MG/DL (74-106); POTASSIUM SERUM 3.7 MMOL/L (3.5-5.1); SODIUM LEVEL 136 MMOL/L (136-145)
[2022-05-26 08:00] VITALS: BP 136/76
[2022-05-26] MEDS: APIXABAN 5 MG TAB (ELIQUIS) PO SCH (08:25)
[2022-05-26 08:26] VITALS: BP 124/76
[2022-05-26] MEDS: INSULIN LISPRO (NovoLOG) PER UNIT SC SCH (08:27)
[2022-05-26] MEDS ORDERED: allopurinoL 100 MG TAB PO SCH (09:00)
[2022-05-26] MEDS ORDERED: FLUTICASONE PROP 0.05% NASAL SPRAY 16 GM (FLONASE) SCH (09:00)
[2022-05-26] MEDS ORDERED: FINASTERIDE 5MG TAB PO SCH (09:00)
[2022-05-26] MEDS ORDERED: FOSI20TA79 PO (09:17)
[2022-05-26] MEDS ORDERED: DILT1CAP5 PO (09:17)
[2022-05-26] MEDS ORDERED: ROSU20TA5 PO (09:17)
== END 2022-05-26 12:20 | disposition home or self-care (01) ==
LOC: EDBD 11:18 → M ED 11:18 → M ED INP 15:16 → M PCU 22:04
PROVIDERS: ADMIT Internal Medicine; ATTEND Internal Medicine
DX: R55 Syncope and collapse (principal); I48.91 Unspecified atrial fibrillation; E11.40 Type 2 diabetes mellitus with diabetic neuropathy, unspecified; J44.9 Chronic obstructive pulmonary disease, unspecified; M10.9 Gout, unspecified; N40.0 Benign prostatic hyperplasia without lower urinary tract symptoms; C91.10 Chronic lymphocytic leukemia of B-cell type not having achieved remission; Z79.01 Long term (current) use of anticoagulants; Z79.622 Long term (current) use of Janus kinase inhibitor; Z79.84 Long term (current) use of oral hypoglycemic drugs; J30.2 Other seasonal allergic rhinitis
CPT/HCPCS: 36415; 70450; 70551; 71045; 73502; 80048; 82550; 82553; 83735; 84439; 84443; 84484; 85025; 85027; 87040; 87631; 93005; 93041; 94760; 96374; 97162; 97165; 99285; G0378; J1815

== ENCOUNTER → 2022-07-15 | Outpatient (REF) | payer MEDICARE ==
[~2022-07-15] MED LIST changes: +DILT1CAP5 PO; +FLON1SPR; +FOSI20TA79 PO; +ROSU20TA5 PO
[2022-07-15 17:16] LABS: THYROID STIMULATING HORMONE 8.35 uIU/ML (0.55-4.78)
[2022-07-15 17:17] LABS: FREE T4 0.97 NG/DL (0.89-1.76)
== END ==
LOC: M SFHCCLAY 13:45
PROVIDERS: ATTEND Nurse Practitioner Family
DX: R53.83 Other fatigue (principal)

== ENCOUNTER → 2022-08-09 | Outpatient (REF) | payer MEDICARE ==
[~2022-08-09] MED LIST changes: +LEVO88TA3
[2022-08-09 19:09] LABS: ALBUMIN 3.2 G/DL (3.2-5.2); ALKALINE PHOSPHATASE 71 U/L (46-116); ALT/SGPT 13 U/L (7.0-40); AST/SGOT 18 U/L (<34); BILIRUBIN,TOTAL 1.1 MG/DL (0.3-1.2); BLOOD UREA NITROGEN 16 MG/DL (9-23); CALCIUM LEVEL 8.2 MG/DL (8.3-10.6); CARBON DIOXIDE LEVEL 32 MMOL/L (20-31); CHLORIDE LEVEL 91 MMOL/L (98-107); CHOLESTEROL LEVEL 81 MG/DL (<200); CREATININE FOR GFR 0.91 MG/DL (0.70-1.30); FREE T4 1.51 NG/DL (0.89-1.76); GLOMERULAR FILTRATION RATE > 60.0 (>42); GLUCOSE, FASTING 295 MG/DL (74-106); HDL CHOLESTEROL 47.5 MG/DL (>40); LDL CHOLESTEROL 18.1 MG/DL (<100); NON-HDL-C 34 MG/DL; POTASSIUM SERUM 3.9 MMOL/L (3.5-5.1); SODIUM LEVEL 130 MMOL/L (136-145); THYROID STIMULATING HORMONE 1.912 uIU/ML (0.55-4.78); TOTAL PROTEIN 7.2 G/DL (5.7-8.2); TRIGLYCERIDES LEVEL 77 MG/DL (<150)
[2022-08-09 19:11] LABS: HEMOGLOBIN A1c 6.6 % (4.0-6.0)
== END ==
LOC: M SFHCCLAY 10:37
PROVIDERS: ATTEND Nurse Practitioner Family
DX: E03.9 Hypothyroidism, unspecified (principal); E11.8 Type 2 diabetes mellitus with unspecified complications; E78.5 Hyperlipidemia, unspecified; I11.9 Hypertensive heart disease without heart failure

== ENCOUNTER → 2022-09-21 | Outpatient (REF) | payer MEDICARE ==
[2022-09-21 12:11] LABS: BASO # 0.1 10^3/uL (0.0-0.2); BASO % 0.6 % (0.0-1.0); EOS # 0.5 10^3/uL (0.0-0.5); EOS % 3.1 % (0.0-3.0); HEMATOCRIT 40.7 % (42.0-52.0); HEMOGLOBIN 12.6 g/dl (13.5-17.5); LYMPH # 8.4 10^3/uL (1.5-5.0); LYMPH % 57.8 % (24.0-44.0); MEAN CORPUSCULAR HEMOGLOBIN 27.2 pg (27.0-33.0); MEAN CORPUSCULAR VOLUME 87.9 fl (80.0-96.0); MONO # 1.2 10^3/uL (0.0-0.8); MONO % 8.2 % (2.0-8.0); NEUTROPHILS # 4.4 10^3/uL (1.5-8.5); NEUTROPHILS % 30.2 % (36.0-66.0); PLATELET COUNT, AUTOMATED 178 10^3/uL (150-450); RED BLOOD COUNT 4.63 10^6/uL (4.30-6.10); WHITE BLOOD COUNT 14.5 10^3/uL (4.0-10.0)
[2022-09-21 12:38] LABS: ALBUMIN 3.3 G/DL (3.2-5.2); ALKALINE PHOSPHATASE 73 U/L (46-116); ALT/SGPT 18 U/L (7.0-40); AST/SGOT 19 U/L (<34); BILIRUBIN,TOTAL 0.9 MG/DL (0.3-1.2); BLOOD UREA NITROGEN 16 MG/DL (9-23); CALCIUM LEVEL 8.3 MG/DL (8.3-10.6); CARBON DIOXIDE LEVEL 30 MMOL/L (20-31); CHLORIDE LEVEL 99 MMOL/L (98-107); CREATININE FOR GFR 0.91 MG/DL (0.70-1.30); GLOMERULAR FILTRATION RATE > 60.0 (>42); GLUCOSE, FASTING 150 MG/DL (74-106); POTASSIUM SERUM 3.9 MMOL/L (3.5-5.1); SODIUM LEVEL 134 MMOL/L (136-145); TOTAL PROTEIN 7.3 G/DL (5.7-8.2)
== END ==
LOC: M LABDRAWC 11:22
PROVIDERS: ATTEND Internal Medicine Hematology & Oncology
DX: C91.10 Chronic lymphocytic leukemia of B-cell type not having achieved remission (principal)

== ENCOUNTER → 2022-11-16 | Outpatient (REF) | payer MEDICARE ==
[~2022-11-16] MED LIST changes: -DILT1CAP5 PO; +DILT240C41 PO
[2022-11-16 14:26] LABS: APPEARANCE, URINE CLEAR (CLEAR); BACTERIA, URINE AUTO 1+ (NEGATIVE); BILIRUBIN, URINE AUTO NEGATIVE (NEGATIVE); BLOOD, URINE BLOOD 1+ (NEGATIVE); COLOR, URINE YELLOW (YELLOW); GLUCOSE, URINE (UA) AUTO 3+ mg/dL (NEGATIVE); KETONE, URINE AUTO NEGATIVE (NEGATIVE); LEUKOCYTE ESTERASE, URINE AUTO NEGATIVE (NEGATIVE); NITRITE, URINE AUTO NEGATIVE (NEGATIVE); PROTEIN, URINE AUTO 2+ mg/dL (NEGATIVE); RBC, URINE AUTO 1 /HPF (0-3); SPECIFIC GRAVITY URINE AUTO 1.029 (1.002-1.035); SQUAMOUS EPITHELIAL CELL UR AU 0 /HPF (0-6); UROBILINOGEN, URINE AUTO 0.2 mg/dL (0.0-2.0); WBC, URINE AUTO 0 /HPF (0-3)
== END ==
LOC: M SMT 13:10
PROVIDERS: ATTEND Physician Assistant
DX: Z87.898 Personal history of other specified conditions (principal)

== ENCOUNTER → 2022-11-22 | Outpatient (REF) | payer MEDICARE ==
[~2022-11-22] MED LIST changes: -ROSU20TA5 PO; +ROSU20TA61 PO
== END ==
LOC: M SFHCCLAY 07:25
PROVIDERS: ATTEND Physician Assistant
DX: R97.20 Elevated prostate specific antigen [PSA] (principal)

== ENCOUNTER → 2022-11-22 | Outpatient (REF) | payer MEDICARE ==
[2022-11-22 11:47] LABS: BASO # 0.1 10^3/uL (0.0-0.2); BASO % 0.8 % (0.0-1.0); EOS # 0.5 10^3/uL (0.0-0.5); EOS % 3.2 % (0.0-3.0); HEMATOCRIT 39.4 % (42.0-52.0); HEMOGLOBIN 12.4 g/dl (13.5-17.5); LYMPH # 6.2 10^3/uL (1.5-5.0); LYMPH % 43.8 % (24.0-44.0); MEAN CORPUSCULAR HEMOGLOBIN 26.8 pg (27.0-33.0); MEAN CORPUSCULAR HGB CONC 31.5 g/dl (32.0-36.5); MEAN CORPUSCULAR VOLUME 85.3 fl (80.0-96.0); MONO # 1.4 10^3/uL (0.0-0.8); MONO % 9.9 % (2.0-8.0); NEUTROPHILS # 5.9 10^3/uL (1.5-8.5); NEUTROPHILS % 41.9 % (36.0-66.0); PLATELET COUNT, AUTOMATED 192 10^3/uL (150-450); RED BLOOD COUNT 4.62 10^6/uL (4.30-6.10); WHITE BLOOD COUNT 14.1 10^3/uL (4.0-10.0)
[2022-11-22 12:20] LABS: LDH LACTATE DEHYDROGENASE 181 U/L (120-246)
[2022-11-22 12:22] LABS: ALBUMIN 3.7 G/DL (3.2-5.2); ALKALINE PHOSPHATASE 93 U/L (46-116); ALT/SGPT 28 U/L (7.0-40); AST/SGOT 14 U/L (<34); BILIRUBIN,TOTAL 1.2 MG/DL (0.3-1.2); BLOOD UREA NITROGEN 19 MG/DL (9-23); CALCIUM LEVEL 8.2 MG/DL (8.3-10.6); CARBON DIOXIDE LEVEL 28 MMOL/L (20-31); CHLORIDE LEVEL 98 MMOL/L (98-107); CREATININE FOR GFR 0.94 MG/DL (0.70-1.30); GLOMERULAR FILTRATION RATE > 60.0 (>42); GLUCOSE, FASTING 132 MG/DL (74-106); SODIUM LEVEL 131 MMOL/L (136-145); TOTAL PROTEIN 7.4 G/DL (5.7-8.2)
== END ==
LOC: M LABDRAWC 11:23
PROVIDERS: ATTEND Internal Medicine Hematology & Oncology
DX: Z85.6 Personal history of leukemia (principal)

== ENCOUNTER → 2022-12-16 | Outpatient (REF) | payer MEDICARE ==
[2022-12-16 17:51] LABS: HEMOGLOBIN A1c 7.1 % (4.0-6.0)
[2022-12-16 17:56] LABS: FREE T4 1.44 NG/DL (0.89-1.76)
[2022-12-16 17:58] LABS: ALBUMIN 3.4 G/DL (3.2-5.2); ALKALINE PHOSPHATASE 74 U/L (46-116); ALT/SGPT 14 U/L (7.0-40); AST/SGOT 12 U/L (<34); BILIRUBIN,TOTAL 0.9 MG/DL (0.3-1.2); BLOOD UREA NITROGEN 16 MG/DL (9-23); CALCIUM LEVEL 8.2 MG/DL (8.3-10.6); CARBON DIOXIDE LEVEL 27 MMOL/L (20-31); CHLORIDE LEVEL 102 MMOL/L (98-107); CHOLESTEROL LEVEL 83 MG/DL (<200); CHOLESTEROL RISK RATIO 1.64 (<5); CREATININE FOR GFR 0.86 MG/DL (0.70-1.30); GLOMERULAR FILTRATION RATE > 60.0 (>42); GLUCOSE, FASTING 112 MG/DL (74-106); HDL CHOLESTEROL 50.6 MG/DL (>40); NON-HDL-C 32.4 MG/DL; POTASSIUM SERUM 3.8 MMOL/L (3.5-5.1); SODIUM LEVEL 133 MMOL/L (136-145); TOTAL PROTEIN 7.1 G/DL (5.7-8.2); TRIGLYCERIDES LEVEL 67 MG/DL (<150)
[2022-12-16 18:00] LABS: THYROID STIMULATING HORMONE 1.067 uIU/ML (0.55-4.78)
== END ==
LOC: M SFHCCLAY 11:17
PROVIDERS: ATTEND Nurse Practitioner Family
DX: R53.82 Chronic fatigue, unspecified (principal); E11.8 Type 2 diabetes mellitus with unspecified complications; E78.5 Hyperlipidemia, unspecified; J43.9 Emphysema, unspecified; I11.9 Hypertensive heart disease without heart failure; N40.0 Benign prostatic hyperplasia without lower urinary tract symptoms; I48.11 Longstanding persistent atrial fibrillation; C91.10 Chronic lymphocytic leukemia of B-cell type not having achieved remission; E03.9 Hypothyroidism, unspecified

== ENCOUNTER → 2023-01-25 | Outpatient (REF) | payer MEDICARE ==
[2023-01-25 12:54] LABS: BASO # 0.1 10^3/uL (0.0-0.2); BASO % 0.9 % (0.0-1.0); EOS # 0.3 10^3/uL (0.0-0.5); EOS % 2.9 % (0.0-3.0); HEMOGLOBIN 12.8 g/dl (13.5-17.5); LYMPH # 4.7 10^3/uL (1.5-5.0); LYMPH % 40.7 % (24.0-44.0); MEAN CORPUSCULAR HEMOGLOBIN 27.2 pg (27.0-33.0); MEAN CORPUSCULAR HGB CONC 31.2 g/dl (32.0-36.5); MEAN CORPUSCULAR VOLUME 87.2 fl (80.0-96.0); MONO # 1.3 10^3/uL (0.0-0.8); MONO % 10.9 % (2.0-8.0); NEUTROPHILS # 5.1 10^3/uL (1.5-8.5); NEUTROPHILS % 44.2 % (36.0-66.0); PLATELET COUNT, AUTOMATED 211 10^3/uL (150-450); WHITE BLOOD COUNT 11.6 10^3/uL (4.0-10.0)
[2023-01-25 13:18] LABS: ALBUMIN 3.4 G/DL (3.2-5.2); ALKALINE PHOSPHATASE 78 U/L (46-116); ALT/SGPT 14 U/L (7.0-40); AST/SGOT 14 U/L (<34); BLOOD UREA NITROGEN 19 MG/DL (9-23); CALCIUM LEVEL 8.4 MG/DL (8.3-10.6); CARBON DIOXIDE LEVEL 28 MMOL/L (20-31); CHLORIDE LEVEL 98 MMOL/L (98-107); CREATININE FOR GFR 0.93 MG/DL (0.70-1.30); GLOMERULAR FILTRATION RATE > 60.0 (>42); GLUCOSE, FASTING 130 MG/DL (74-106); POTASSIUM SERUM 4.2 MMOL/L (3.5-5.1); SODIUM LEVEL 134 MMOL/L (136-145); TOTAL PROTEIN 6.9 G/DL (5.7-8.2)
== END ==
LOC: M LABDRAWC 11:43
PROVIDERS: ATTEND Internal Medicine Hematology & Oncology
DX: C91.10 Chronic lymphocytic leukemia of B-cell type not having achieved remission (principal)

== ENCOUNTER → 2023-02-06 | Outpatient (CLI) | payer MEDICARE | LOC: M SLEEP 20:00 | PROVIDERS: ATTEND Nurse Practitioner Family | DX: R06.83 Snoring (principal); G47.61 Periodic limb movement disorder ==

== ENCOUNTER → 2023-03-21 | Outpatient (REF) | payer MEDICARE ==
[2023-03-21 18:12] LABS: ALBUMIN 3.6 G/DL (3.2-5.2); ALKALINE PHOSPHATASE 75 U/L (46-116); ALT/SGPT 13 U/L (7.0-40); AST/SGOT 19 U/L (<34); BILIRUBIN,TOTAL 1.1 MG/DL (0.3-1.2); BLOOD UREA NITROGEN 19 MG/DL (9-23); CALCIUM LEVEL 8.3 MG/DL (8.3-10.6); CARBON DIOXIDE LEVEL 31 MMOL/L (20-31); CHLORIDE LEVEL 94 MMOL/L (98-107); CHOLESTEROL LEVEL 88 MG/DL (<200); CREATININE FOR GFR 0.88 MG/DL (0.70-1.30); FREE T4 1.37 NG/DL (0.89-1.76); GLOMERULAR FILTRATION RATE > 60.0 (>42); GLUCOSE, FASTING 370 MG/DL (74-106); HDL CHOLESTEROL 51.6 MG/DL (>40); HEMOGLOBIN A1c 6.2 % (4.0-6.0); LDL CHOLESTEROL 20.6 MG/DL (<100); NON-HDL-C 36.4 MG/DL; SODIUM LEVEL 130 MMOL/L (136-145); THYROID STIMULATING HORMONE 2.061 uIU/ML (0.55-4.78); TOTAL PROTEIN 7.4 G/DL (5.7-8.2); TRIGLYCERIDES LEVEL 79 MG/DL (<150)
== END ==
LOC: M SFHCCLAY 11:00
PROVIDERS: ATTEND Nurse Practitioner Family
DX: E11.8 Type 2 diabetes mellitus with unspecified complications (principal); E03.9 Hypothyroidism, unspecified; E78.5 Hyperlipidemia, unspecified

== ENCOUNTER → 2023-03-21 | Outpatient (CLI) | payer MEDICARE | LOC: M CLY 11:21 | PROVIDERS: ATTEND Nurse Practitioner Family | DX: M25.462 Effusion, left knee (principal) ==

== ENCOUNTER → 2023-03-29 | Outpatient (CLI) | payer MEDICARE ==
[~2023-03-29] MED LIST changes: +ISOVUE-370 76% 100ML VIAL ONE
== END ==
LOC: M PLAIMG 07:50
PROVIDERS: ATTEND Nurse Practitioner Family
DX: R06.02 Shortness of breath (principal); R59.9 Enlarged lymph nodes, unspecified
CPT/HCPCS: 71260; Q9967

== ENCOUNTER → 2023-04-20 | Outpatient (CLI) | payer MEDICARE ==
[~2023-04-20] MED LIST changes: -ISOVUE-370 76% 100ML VIAL ONE
== END ==
LOC: M CARPUL 13:02
PROVIDERS: ATTEND Nurse Practitioner Family
DX: Z53.9 Procedure and treatment not carried out, unspecified reason (principal)

== ENCOUNTER → 2023-05-11 | Outpatient (CLI) | payer MEDICARE | LOC: M CARPUL 12:28 | PROVIDERS: ATTEND Nurse Practitioner Family | DX: R06.02 Shortness of breath (principal) ==

== ENCOUNTER → 2023-06-22 | Outpatient (REF) | payer MEDICARE ==
[2023-06-22 19:11] LABS: CREATININE, URINE 168.1 MG/DL
[2023-06-22 19:12] LABS: ALBUMIN 3.5 G/DL (3.2-5.2); ALKALINE PHOSPHATASE 77 U/L (46-116); ALT/SGPT 13 U/L (7.0-40); AST/SGOT 14 U/L (<34); BILIRUBIN,TOTAL 1.4 MG/DL (0.3-1.2); BLOOD UREA NITROGEN 23 MG/DL (9-23); CALCIUM LEVEL 8.7 MG/DL (8.3-10.6); CARBON DIOXIDE LEVEL 28 MMOL/L (20-31); CHLORIDE LEVEL 98 MMOL/L (98-107); CHOLESTEROL LEVEL 93 MG/DL (<200); CHOLESTEROL RISK RATIO 1.73 (<5); GLOMERULAR FILTRATION RATE > 60.0 (>42); GLUCOSE, FASTING 143 MG/DL (74-106); HDL CHOLESTEROL 53.5 MG/DL (>40); LDL CHOLESTEROL 24.1 MG/DL (<100); NON-HDL-C 39.5 MG/DL; SODIUM LEVEL 131 MMOL/L (136-145); TOTAL PROTEIN 7.2 G/DL (5.7-8.2); TRIGLYCERIDES LEVEL 77 MG/DL (<150)
[2023-06-22 19:16] LABS: THYROID STIMULATING HORMONE 2.396 uIU/ML (0.55-4.78)
[2023-06-22 19:17] LABS: FREE T4 1.56 NG/DL (0.89-1.76)
[2023-06-22 19:23] LABS: MAU/CREAT RATIO 442.5 MCG/MG (0.0-30.0)
[2023-06-22 19:51] LABS: RSV AMPLIFICATION NEGATIVE (NEGATIVE)
== END ==
LOC: M SFHCCLAY 11:44
PROVIDERS: ATTEND Physician Assistant
DX: B34.9 Viral infection, unspecified (principal); E11.8 Type 2 diabetes mellitus with unspecified complications; E78.5 Hyperlipidemia, unspecified; I11.9 Hypertensive heart disease without heart failure; E03.9 Hypothyroidism, unspecified

== ENCOUNTER → 2023-07-03 | Outpatient (CLI) | payer MEDICARE ==
[~2023-07-03] MED LIST changes: +ALBU2.5V10
== END ==
LOC: M SLEEP 20:00
PROVIDERS: ATTEND Nurse Practitioner Family
DX: G47.33 Obstructive sleep apnea (adult) (pediatric) (principal)

== ENCOUNTER → 2023-09-15 | Outpatient (REF) | payer MEDICARE | LOC: M SFHCCLAY 14:30 | PROVIDERS: ATTEND Physician Assistant | DX: R09.81 Nasal congestion (principal) ==

== ENCOUNTER → 2023-10-10 | Outpatient (REF) | payer MEDICARE ==
[2023-10-10 18:10] LABS: BASO # 0.1 10^3/uL (0.0-0.2); EOS # 0.1 10^3/uL (0.0-0.5); EOS % 1.7 % (0.0-3.0); HEMOGLOBIN 10.1 g/dl (13.5-17.5); LYMPH # 1.9 10^3/uL (1.5-5.0); LYMPH % 23.8 % (24.0-44.0); MEAN CORPUSCULAR HEMOGLOBIN 25.9 pg (27.0-33.0); MEAN CORPUSCULAR HGB CONC 30.6 g/dl (32.0-36.5); MEAN CORPUSCULAR VOLUME 84.6 fl (80.0-96.0); MONO # 0.8 10^3/uL (0.0-0.8); MONO % 9.8 % (2.0-8.0); NEUTROPHILS % 63.6 % (36.0-66.0); PLATELET COUNT, AUTOMATED 214 10^3/uL (150-450); WHITE BLOOD COUNT 7.8 10^3/uL (4.0-10.0)
[2023-10-10 18:32] LABS: LDH LACTATE DEHYDROGENASE 215 U/L (120-246)
[2023-10-10 18:34] LABS: ALKALINE PHOSPHATASE 66 U/L (46-116); ALT/SGPT 18 U/L (7.0-40); AST/SGOT 27 U/L (<34); BLOOD UREA NITROGEN 19 MG/DL (9-23); CALCIUM LEVEL 8.5 MG/DL (8.3-10.6); CARBON DIOXIDE LEVEL 27 MMOL/L (20-31); CHLORIDE LEVEL 100 MMOL/L (98-107); CREATININE FOR GFR 0.92 MG/DL (0.70-1.30); GLOMERULAR FILTRATION RATE > 60.0 (>42); GLUCOSE, FASTING 129 MG/DL (74-106); POTASSIUM SERUM 4.1 MMOL/L (3.5-5.1); SODIUM LEVEL 133 MMOL/L (136-145); TOTAL PROTEIN 6.8 G/DL (5.7-8.2)
== END ==
LOC: M LABDRAWC 16:42
PROVIDERS: ATTEND Internal Medicine Hematology & Oncology
DX: C91.10 Chronic lymphocytic leukemia of B-cell type not having achieved remission (principal)

== ENCOUNTER → 2023-12-12 | Outpatient (CLI) | payer MEDICARE ==
[2023-12-12 17:18] LABS: APPEARANCE, URINE HAZY (CLEAR); BACTERIA, URINE AUTO NEGATIVE (NEGATIVE); BILIRUBIN, URINE AUTO NEGATIVE (NEGATIVE); BLOOD, URINE BLOOD NEGATIVE (NEGATIVE); CALCIUM OXALATE CRYSTALS LARGE; COLOR, URINE YELLOW (YELLOW); GLUCOSE, URINE (UA) AUTO NEGATIVE (NEGATIVE); KETONE, URINE AUTO NEGATIVE (NEGATIVE); LEUKOCYTE ESTERASE, URINE AUTO NEGATIVE (NEGATIVE); MUCUS, URINE SMALL (NEGATIVE); NITRITE, URINE AUTO NEGATIVE (NEGATIVE); PROTEIN, URINE AUTO 1+ mg/dL (NEGATIVE); RBC, URINE AUTO 2 /HPF (0-3); SPECIFIC GRAVITY URINE AUTO 1.016 (1.002-1.035); SQUAMOUS EPITHELIAL CELL UR AU 0 /HPF (0-6); UROBILINOGEN, URINE AUTO 0.2 mg/dL (0.0-2.0); WBC, URINE AUTO 0 /HPF (0-3)
== END ==
LOC: M CLY 15:01
PROVIDERS: ATTEND Physician Assistant
DX: J96.01 Acute respiratory failure with hypoxia (principal)

== ENCOUNTER → 2023-12-13 | Outpatient (REF) | payer MEDICARE | LOC: M SFHCCLAY 11:11 | PROVIDERS: ATTEND Physician Assistant | DX: A09 Infectious gastroenteritis and colitis, unspecified (principal) ==

== ENCOUNTER → 2023-12-27 | Outpatient (REF) | payer MEDICARE ==
[~2023-12-27] MED LIST changes: +ACET1TAB55 PO; +AMOX875T2 PO; +AZIT-12 PO; +DILT360C7 PO; +FINA-48 PO; +FLUT15.820; +FURO20TA2; +FURO20TA2 PO; +LIDO5TD TD; +MECL-86 PO; +OMEG100011 PO; +VITA-148 PO; +VITA100093 PO; +VITA500T40 PO
== END ==
LOC: M LABDRAWC 16:37
PROVIDERS: ATTEND Nurse Practitioner Acute Care
DX: R60.0 Localized edema (principal)

== ENCOUNTER → 2023-12-28 | Outpatient (REF) | payer MEDICARE ==
[2023-12-28 20:05] LABS: ALBUMIN 3.5 G/DL (3.2-5.2); ALKALINE PHOSPHATASE 74 U/L (46-116); ALT/SGPT 15 U/L (7.0-40); AST/SGOT 11 U/L (<34); BILIRUBIN,TOTAL 0.7 MG/DL (0.3-1.2); BLOOD UREA NITROGEN 20 MG/DL (9-23); CALCIUM LEVEL 8.7 MG/DL (8.3-10.6); CARBON DIOXIDE LEVEL 28 MMOL/L (20-31); CHLORIDE LEVEL 100 MMOL/L (98-107); CHOLESTEROL LEVEL 102 MG/DL (<200); CHOLESTEROL RISK RATIO 2.23 (<5); CREATININE FOR GFR 0.76 MG/DL (0.70-1.30); GLOMERULAR FILTRATION RATE > 60.0 (>42); GLUCOSE, FASTING 114 MG/DL (74-106); HDL CHOLESTEROL 45.7 MG/DL (>40); LDL CHOLESTEROL 42.3 MG/DL (<100); MAGNESIUM LEVEL 1.6 MG/DL (1.8-2.4); NON-HDL-C 56.3 MG/DL; POTASSIUM SERUM 3.5 MMOL/L (3.5-5.1); SODIUM LEVEL 133 MMOL/L (136-145); TOTAL PROTEIN 7.2 G/DL (5.7-8.2); TRIGLYCERIDES LEVEL 70 MG/DL (<150)
[2023-12-28 20:06] LABS: FREE T4 1.54 NG/DL (0.89-1.76)
[2023-12-28 20:07] LABS: THYROID STIMULATING HORMONE 1.084 uIU/ML (0.55-4.78)
[2023-12-28 20:19] LABS: HEMOGLOBIN A1c 6.1 % (4.0-6.0)
== END ==
LOC: M SFHCCLAY 10:09
PROVIDERS: ATTEND Nurse Practitioner Family
DX: N40.0 Benign prostatic hyperplasia without lower urinary tract symptoms (principal); E11.8 Type 2 diabetes mellitus with unspecified complications; J43.9 Emphysema, unspecified; E78.5 Hyperlipidemia, unspecified; I11.9 Hypertensive heart disease without heart failure; I48.11 Longstanding persistent atrial fibrillation; C91.10 Chronic lymphocytic leukemia of B-cell type not having achieved remission; E03.9 Hypothyroidism, unspecified; G47.33 Obstructive sleep apnea (adult) (pediatric); A09 Infectious gastroenteritis and colitis, unspecified

== ENCOUNTER → 2024-02-22 | Outpatient (REF) | payer MEDICARE | LOC: M SFHCCLAY 08:03 | PROVIDERS: ATTEND Physician Assistant | DX: R97.20 Elevated prostate specific antigen [PSA] (principal) ==

== ENCOUNTER → 2024-02-22 | Outpatient (REF) | payer MEDICARE ==
[2024-02-22 13:10] LABS: BASO # 0.1 10^3/uL (0.0-0.2); BASO % 0.9 % (0.0-1.0); EOS # 0.2 10^3/uL (0.0-0.5); EOS % 2.2 % (0.0-3.0); HEMATOCRIT 40.9 % (42.0-52.0); HEMOGLOBIN 13.1 g/dl (13.5-17.5); LYMPH # 2.7 10^3/uL (1.5-5.0); LYMPH % 31.7 % (24.0-44.0); MEAN CORPUSCULAR HEMOGLOBIN 28.4 pg (27.0-33.0); MEAN CORPUSCULAR VOLUME 88.5 fl (80.0-96.0); MONO # 0.9 10^3/uL (0.0-0.8); MONO % 10.1 % (2.0-8.0); NEUTROPHILS # 4.6 10^3/uL (1.5-8.5); NEUTROPHILS % 54.7 % (36.0-66.0); PLATELET COUNT, AUTOMATED 209 10^3/uL (150-450); RED BLOOD COUNT 4.62 10^6/uL (4.30-6.10); WHITE BLOOD COUNT 8.5 10^3/uL (4.0-10.0)
[2024-02-22 13:33] LABS: ALBUMIN 3.6 G/DL (3.2-5.2); ALKALINE PHOSPHATASE 74 U/L (46-116); ALT/SGPT 17 U/L (7.0-40); AST/SGOT 12 U/L (<34); BILIRUBIN,TOTAL 1.1 MG/DL (0.3-1.2); BLOOD UREA NITROGEN 27 MG/DL (9-23); CALCIUM LEVEL 8.8 MG/DL (8.3-10.6); CARBON DIOXIDE LEVEL 31 MMOL/L (20-31); CHLORIDE LEVEL 99 MMOL/L (98-107); CREATININE FOR GFR 0.95 MG/DL (0.70-1.30); GLOMERULAR FILTRATION RATE > 60.0 (>42); GLUCOSE, FASTING 116 MG/DL (74-106); IMMUNOGLOBULIN A 309.3 MG/DL (40-350); IMMUNOGLOBULIN G 1588 MG/DL (650-1600); POTASSIUM SERUM 3.9 MMOL/L (3.5-5.1); SODIUM LEVEL 133 MMOL/L (136-145); TOTAL PROTEIN 7.4 G/DL (5.7-8.2)
== END ==
LOC: M LABDRAWC 11:53
PROVIDERS: ATTEND Internal Medicine Hematology & Oncology
DX: C91.10 Chronic lymphocytic leukemia of B-cell type not having achieved remission (principal)

== ENCOUNTER → 2024-04-03 | Outpatient (REF) | payer MEDICARE ==
[~2024-04-03] MED LIST changes: +FURO40TA2 PO; -ROSU20TA61 PO; +ROSU20TA86 PO
[2024-04-03 17:06] LABS: CREATININE, URINE 115.4 MG/DL; MAU/CREAT RATIO 166.3 MCG/MG (0.0-30.0)
[2024-04-03 17:15] LABS: BASO # 0.1 10^3/uL (0.0-0.2); BASO % 0.9 % (0.0-1.0); EOS # 0.3 10^3/uL (0.0-0.5); EOS % 2.9 % (0.0-3.0); HEMOGLOBIN 12.4 g/dl (13.5-17.5); LYMPH # 2.3 10^3/uL (1.5-5.0); LYMPH % 23.8 % (24.0-44.0); MEAN CORPUSCULAR HEMOGLOBIN 29.1 pg (27.0-33.0); MEAN CORPUSCULAR HGB CONC 31.8 g/dl (32.0-36.5); MEAN CORPUSCULAR VOLUME 91.5 fl (80.0-96.0); MONO % 10.3 % (2.0-8.0); NEUTROPHILS % 61.5 % (36.0-66.0); PLATELET COUNT, AUTOMATED 230 10^3/uL (150-450); RED BLOOD COUNT 4.26 10^6/uL (4.30-6.10); WHITE BLOOD COUNT 9.7 10^3/uL (4.0-10.0)
[2024-04-03 18:29] LABS: HEMOGLOBIN A1c 6.3 % (4.0-6.0)
[2024-04-04 08:26] LABS: ALBUMIN 3.4 G/DL (3.2-5.2); ALKALINE PHOSPHATASE 59 U/L (40-129); ALT/SGPT 13 U/L (7.0-40); AST/SGOT 10 U/L (<34); BILIRUBIN,TOTAL 0.9 MG/DL (0.3-1.2); BLOOD UREA NITROGEN 24 MG/DL (9-23); CALCIUM LEVEL 9.2 MG/DL (8.3-10.6); CARBON DIOXIDE LEVEL 30 MMOL/L (20-31); CHLORIDE LEVEL 100 MMOL/L (98-107); CHOLESTEROL LEVEL 96 MG/DL (<200); CHOLESTEROL RISK RATIO 2.04 (<5); CREATININE FOR GFR 0.96 MG/DL (0.70-1.30); GLOMERULAR FILTRATION RATE > 60.0 (>42); GLUCOSE, FASTING 268 MG/DL (74-106); LDL CHOLESTEROL 32.6 MG/DL (<100); SODIUM LEVEL 134 MMOL/L (136-145); THYROID STIMULATING HORMONE 1.911 uIU/ML (0.55-4.78); TOTAL PROTEIN 7.2 G/DL (5.7-8.2); TRIGLYCERIDES LEVEL 82 MG/DL (<150)
== END ==
LOC: M SFHCCLAY 11:48
PROVIDERS: ATTEND Nurse Practitioner Family
DX: Z00.00 Encounter for general adult medical examination without abnormal findings (principal); E11.8 Type 2 diabetes mellitus with unspecified complications; Z86.73 Personal history of transient ischemic attack (TIA), and cerebral infarction without residual deficits; J43.9 Emphysema, unspecified; H81.10 Benign paroxysmal vertigo, unspecified ear; E78.5 Hyperlipidemia, unspecified; I11.9 Hypertensive heart disease without heart failure; I48.11 Longstanding persistent atrial fibrillation; C91.10 Chronic lymphocytic leukemia of B-cell type not having achieved remission; E03.9 Hypothyroidism, unspecified; G47.33 Obstructive sleep apnea (adult) (pediatric); N40.0 Benign prostatic hyperplasia without lower urinary tract symptoms; Z23 Encounter for immunization

== ENCOUNTER → 2024-05-08 | Outpatient (CLI) | payer MEDICARE ==
[~2024-05-08] MED LIST changes: -ADV250INH INH; +ADVA1AER9 INH; +ISOVUE-370 76% 100ML VIAL As Ordered ONE
== END ==
LOC: M RAD 09:58
PROVIDERS: ATTEND Physician Assistant Medical
DX: D50.9 Iron deficiency anemia, unspecified (principal); K57.30 Diverticulosis of large intestine without perforation or abscess without bleeding; N28.1 Cyst of kidney, acquired; K40.20 Bilateral inguinal hernia, without obstruction or gangrene, not specified as recurrent
CPT/HCPCS: 74177; Q9967

== ENCOUNTER → 2024-05-27 | Outpatient (REF) | payer MEDICARE ==
[~2024-05-27] MED LIST changes: -ISOVUE-370 76% 100ML VIAL As Ordered ONE
[2024-05-27 11:23] LABS: ALBUMIN 3.5 G/DL (3.2-5.2); ALKALINE PHOSPHATASE 62 U/L (40-129); ALT/SGPT 17 U/L (7.0-40); AST/SGOT 13 U/L (<34); BILIRUBIN,TOTAL 0.8 MG/DL (0.3-1.2); BLOOD UREA NITROGEN 17 MG/DL (9-23); CALCIUM LEVEL 9.4 MG/DL (8.3-10.6); CARBON DIOXIDE LEVEL 30 MMOL/L (20-31); CHLORIDE LEVEL 99 MMOL/L (98-107); CREATININE FOR GFR 0.91 MG/DL (0.70-1.30); GLOMERULAR FILTRATION RATE > 60.0 (>42); GLUCOSE, FASTING 144 MG/DL (74-106); POTASSIUM SERUM 3.9 MMOL/L (3.5-5.1); SODIUM LEVEL 138 MMOL/L (136-145); TOTAL PROTEIN 7.4 G/DL (5.7-8.2)
[2024-05-27 11:26] LABS: BASO # 0.1 10^3/uL (0.0-0.2); EOS # 0.2 10^3/uL (0.0-0.5); EOS % 1.8 % (0.0-3.0); HEMATOCRIT 41.3 % (42.0-52.0); HEMOGLOBIN 13.1 g/dl (13.5-17.5); MEAN CORPUSCULAR HEMOGLOBIN 29.4 pg (27.0-33.0); MEAN CORPUSCULAR HGB CONC 31.7 g/dl (32.0-36.5); MEAN CORPUSCULAR VOLUME 92.6 fl (80.0-96.0); MONO # 1.1 10^3/uL (0.0-0.8); MONO % 11.3 % (2.0-8.0); NEUTROPHILS # 5.2 10^3/uL (1.5-8.5); NEUTROPHILS % 54.4 % (36.0-66.0); PLATELET COUNT, AUTOMATED 227 10^3/uL (150-450); RED BLOOD COUNT 4.46 10^6/uL (4.30-6.10); WHITE BLOOD COUNT 9.6 10^3/uL (4.0-10.0)
[2024-05-30 11:37] LABS: IRON (FE) 61 UG/DL (65-175); PERCENT SATURATION 17.4 % (19.7-50.0); TOTAL IRON BINDING CAPACITY 350 UG/DL (250-425)
[2024-05-30 11:40] LABS: FERRITIN 48.5 NG/ML (10.5-307.3)
== END ==
LOC: M LABDRAWC 10:57
PROVIDERS: ATTEND Specialist
DX: C91.10 Chronic lymphocytic leukemia of B-cell type not having achieved remission (principal)

== ENCOUNTER → 2024-05-31 | Outpatient (CLI) | payer MEDICARE | LOC: M RAD 08:30 | PROVIDERS: ATTEND Internal Medicine Pulmonary Disease | DX: R91.8 Other nonspecific abnormal finding of lung field (principal) ==

== ENCOUNTER 2024-06-20 09:01 | Day surgery (SDC) | payer MEDICARE ==
[~2024-06-20] VITALS: Ht 172.7 cm; Wt 80.1 kg
[~2024-06-20 09:01] MED LIST changes: -ALBU2.5V10; +ALBU2.5V10 INH; +D3 H2000 PO; +DILT240C83 PO; +FISH120016 PO; +FLUT1BLS6 INH; -LEVO88TA3; +LEVO88TA3 PO; +LIDOCAINE 2% 100MG/5ML SDV (FOR ANES.) As Ordered ONE; +METF10004 PO; +TAMS1CAP17 PO; +VITA500065 PO; +VITAE40CA PO; +propofoL 200 MG/20 ML VIAL As Ordered ONE
[2024-06-20 12:08] VITALS: TEMP 98
[2024-06-20 12:39] VITALS: BP 106/72; O2SAT 98
== END 2024-06-20 12:48 | disposition home or self-care (01) ==
LOC: M OPP 09:01
PROVIDERS: ATTEND Internal Medicine Gastroenterology
DX: K63.5 Polyp of colon (principal); K57.30 Diverticulosis of large intestine without perforation or abscess without bleeding; K64.8 Other hemorrhoids; K22.89 Other specified disease of esophagus; D50.9 Iron deficiency anemia, unspecified; I48.91 Unspecified atrial fibrillation; G47.30 Sleep apnea, unspecified; Z79.01 Long term (current) use of anticoagulants; Z79.899 Other long term (current) drug therapy

== ENCOUNTER → 2024-06-24 | Outpatient (REF) | payer MEDICARE ==
[~2024-06-24] MED LIST changes: -LIDOCAINE 2% 100MG/5ML SDV (FOR ANES.) As Ordered ONE; -propofoL 200 MG/20 ML VIAL As Ordered ONE
[2024-06-24 17:55] LABS: ALBUMIN 3.5 G/DL (3.2-5.2); ALKALINE PHOSPHATASE 65 U/L (40-129); ALT/SGPT 18 U/L (7.0-40); AST/SGOT 11 U/L (<34); BASO # 0.1 10^3/uL (0.0-0.2); BASO % 0.5 % (0.0-1.0); BILIRUBIN,TOTAL 0.9 MG/DL (0.3-1.2); BLOOD UREA NITROGEN 26 MG/DL (9-23); CALCIUM LEVEL 9.1 MG/DL (8.3-10.6); CARBON DIOXIDE LEVEL 28 MMOL/L (20-31); CHLORIDE LEVEL 97 MMOL/L (98-107); CHOLESTEROL LEVEL 98 MG/DL (<200); CHOLESTEROL RISK RATIO 2.17 (<5); CREATININE FOR GFR 0.94 MG/DL (0.70-1.30); EOS # 0.2 10^3/uL (0.0-0.5); EOS % 1.8 % (0.0-3.0); FREE T4 1.62 NG/DL (0.89-1.76); GLOMERULAR FILTRATION RATE > 60.0 (>42); GLUCOSE, FASTING 298 MG/DL (74-106); HDL CHOLESTEROL 45.1 MG/DL (>40); HEMATOCRIT 40.1 % (42.0-52.0); HEMOGLOBIN 13.1 g/dl (13.5-17.5); LDL CHOLESTEROL 19.1 MG/DL (<100); LYMPH # 3.3 10^3/uL (1.5-5.0); LYMPH % 24.9 % (24.0-44.0); MEAN CORPUSCULAR HEMOGLOBIN 29.8 pg (27.0-33.0); MEAN CORPUSCULAR HGB CONC 32.7 g/dl (32.0-36.5); MEAN CORPUSCULAR VOLUME 91.1 fl (80.0-96.0); MONO # 2.1 10^3/uL (0.0-0.8); MONO % 16.2 % (2.0-8.0); NEUTROPHILS # 7.5 10^3/uL (1.5-8.5); NEUTROPHILS % 56.1 % (36.0-66.0); NON-HDL-C 52.9 MG/DL; PLATELET COUNT, AUTOMATED 220 10^3/uL (150-450); SODIUM LEVEL 134 MMOL/L (136-145); THYROID STIMULATING HORMONE 1.395 uIU/ML (0.55-4.78); TOTAL PROTEIN 7.4 G/DL (5.7-8.2); TRIGLYCERIDES LEVEL 169 MG/DL (<150); WHITE BLOOD COUNT 13.3 10^3/uL (4.0-10.0)
== END ==
LOC: M SFHCCLAY 11:30
PROVIDERS: ATTEND Nurse Practitioner Family
DX: E11.8 Type 2 diabetes mellitus with unspecified complications (principal); Z86.73 Personal history of transient ischemic attack (TIA), and cerebral infarction without residual deficits; J43.9 Emphysema, unspecified; E78.5 Hyperlipidemia, unspecified; I11.9 Hypertensive heart disease without heart failure; I48.11 Longstanding persistent atrial fibrillation; C91.10 Chronic lymphocytic leukemia of B-cell type not having achieved remission; E03.9 Hypothyroidism, unspecified; G47.33 Obstructive sleep apnea (adult) (pediatric); N40.0 Benign prostatic hyperplasia without lower urinary tract symptoms; R42 Dizziness and giddiness

== ENCOUNTER → 2024-07-19 | Outpatient (CLI) | payer MEDICARE | LOC: M CLY 14:27 | PROVIDERS: ATTEND Physician Assistant | DX: R42 Dizziness and giddiness (principal) ==

== ENCOUNTER → 2024-07-19 | Outpatient (REF) | payer MEDICARE ==
[2024-07-19 19:33] LABS: BASO # 0.1 10^3/uL (0.0-0.2); BASO % 0.7 % (0.0-1.0); EOS # 0.2 10^3/uL (0.0-0.5); EOS % 1.8 % (0.0-3.0); HEMATOCRIT 40.2 % (42.0-52.0); HEMOGLOBIN 13.1 g/dl (13.5-17.5); LYMPH # 3.8 10^3/uL (1.5-5.0); MEAN CORPUSCULAR HEMOGLOBIN 29.5 pg (27.0-33.0); MEAN CORPUSCULAR HGB CONC 32.6 g/dl (32.0-36.5); MEAN CORPUSCULAR VOLUME 90.5 fl (80.0-96.0); MONO # 1.1 10^3/uL (0.0-0.8); MONO % 10.3 % (2.0-8.0); NEUTROPHILS # 5.6 10^3/uL (1.5-8.5); NEUTROPHILS % 51.5 % (36.0-66.0); PLATELET COUNT, AUTOMATED 226 10^3/uL (150-450); RED BLOOD COUNT 4.44 10^6/uL (4.30-6.10)
[2024-07-19 20:02] LABS: ALBUMIN 3.6 G/DL (3.2-5.2); ALKALINE PHOSPHATASE 57 U/L (40-129); ALT/SGPT 16 U/L (7.0-40); AST/SGOT 11 U/L (<34); BILIRUBIN,TOTAL 0.6 MG/DL (0.3-1.2); BLOOD UREA NITROGEN 25 MG/DL (9-23); CARBON DIOXIDE LEVEL 29 MMOL/L (20-31); CHLORIDE LEVEL 100 MMOL/L (98-107); CREATININE FOR GFR 1.08 MG/DL (0.70-1.30); GLOMERULAR FILTRATION RATE > 60.0 (>42); GLUCOSE, FASTING 92 MG/DL (74-106); POTASSIUM SERUM 3.8 MMOL/L (3.5-5.1); SODIUM LEVEL 141 MMOL/L (136-145); THYROID STIMULATING HORMONE 0.839 uIU/ML (0.55-4.78); TOTAL PROTEIN 7.6 G/DL (5.7-8.2)
== END ==
LOC: M SFHCCLAY 14:54
PROVIDERS: ATTEND Physician Assistant
DX: R42 Dizziness and giddiness (principal); Z79.899 Other long term (current) drug therapy

== ENCOUNTER → 2024-08-29 | Outpatient (REF) | payer MEDICARE ==
[2024-08-29 13:14] LABS: BASO # 0.1 10^3/uL (0.0-0.2); BASO % 0.7 % (0.0-1.0); EOS # 0.2 10^3/uL (0.0-0.5); EOS % 1.8 % (0.0-3.0); HEMATOCRIT 34.6 % (42.0-52.0); HEMOGLOBIN 11.3 g/dl (13.5-17.5); LYMPH # 3.6 10^3/uL (1.5-5.0); LYMPH % 36.1 % (24.0-44.0); MEAN CORPUSCULAR HEMOGLOBIN 30.1 pg (27.0-33.0); MEAN CORPUSCULAR HGB CONC 32.7 g/dl (32.0-36.5); MEAN CORPUSCULAR VOLUME 92.3 fl (80.0-96.0); MONO # 0.9 10^3/uL (0.0-0.8); MONO % 8.9 % (2.0-8.0); NEUTROPHILS # 5.1 10^3/uL (1.5-8.5); NEUTROPHILS % 51.8 % (36.0-66.0); PLATELET COUNT, AUTOMATED 203 10^3/uL (150-450); RED BLOOD COUNT 3.75 10^6/uL (4.30-6.10); WHITE BLOOD COUNT 9.9 10^3/uL (4.0-10.0)
[2024-08-29 13:42] LABS: ALBUMIN 3.3 G/DL (3.2-5.2); ALKALINE PHOSPHATASE 54 U/L (40-129); ALT/SGPT 15 U/L (7.0-40); AST/SGOT 11 U/L (<34); BILIRUBIN,TOTAL 0.7 MG/DL (0.3-1.2); BLOOD UREA NITROGEN 23 MG/DL (9-23); CALCIUM LEVEL 8.7 MG/DL (8.3-10.6); CARBON DIOXIDE LEVEL 30 MMOL/L (20-31); CHLORIDE LEVEL 97 MMOL/L (98-107); CREATININE FOR GFR 1.03 MG/DL (0.70-1.30); FERRITIN 56.8 NG/ML (10.5-307.3); FOLATE 8.6 NG/ML (>5.4); GLOMERULAR FILTRATION RATE > 60.0 (>42); GLUCOSE, FASTING 145 MG/DL (74-106); IRON (FE) 80 UG/DL (65-175); POTASSIUM SERUM 3.5 MMOL/L (3.5-5.1); SODIUM LEVEL 136 MMOL/L (136-145); TOTAL IRON BINDING CAPACITY 320 UG/DL (250-425)
[2024-08-29 13:48] LABS: VITAMIN B12 LEVEL > 2000 PG/ML (211-911)
== END ==
LOC: M LABDRAWC 12:13
PROVIDERS: ATTEND Internal Medicine Hematology & Oncology
DX: C91.10 Chronic lymphocytic leukemia of B-cell type not having achieved remission (principal)

== ENCOUNTER → 2024-09-27 | Outpatient (REF) | payer MEDICARE ==
[~2024-09-27] MED LIST changes: -FLOM0.4C39 PO; +TAMS-18 PO
[2024-09-27 13:25] LABS: BASO # 0.1 10^3/uL (0.0-0.2); BASO % 0.8 % (0.0-1.0); EOS # 0.2 10^3/uL (0.0-0.5); EOS % 1.9 % (0.0-3.0); HEMOGLOBIN 11.8 g/dl (13.5-17.5); LYMPH # 3.6 10^3/uL (1.5-5.0); LYMPH % 34.1 % (24.0-44.0); MEAN CORPUSCULAR HEMOGLOBIN 30.6 pg (27.0-33.0); MEAN CORPUSCULAR HGB CONC 32.8 g/dl (32.0-36.5); MEAN CORPUSCULAR VOLUME 93.5 fl (80.0-96.0); MONO % 9.5 % (2.0-8.0); NEUTROPHILS # 5.7 10^3/uL (1.5-8.5); NEUTROPHILS % 53.4 % (36.0-66.0); PLATELET COUNT, AUTOMATED 208 10^3/uL (150-450); RED BLOOD COUNT 3.85 10^6/uL (4.30-6.10); WHITE BLOOD COUNT 10.6 10^3/uL (4.0-10.0)
[2024-09-27 13:26] LABS: ALBUMIN 3.6 G/DL (3.2-5.2); CREATININE FOR GFR 1.09 MG/DL (0.70-1.30); GLOMERULAR FILTRATION RATE 69.5 (>42); PERCENT SATURATION 22.8 % (19.7-50.0); POTASSIUM SERUM 3.8 MMOL/L (3.5-5.1); TOTAL PROTEIN 7.2 G/DL (5.7-8.2)
== END ==
LOC: M LABDRAWC 12:33
PROVIDERS: ATTEND Internal Medicine Hematology & Oncology
DX: C91.10 Chronic lymphocytic leukemia of B-cell type not having achieved remission (principal)

== ENCOUNTER → 2025-02-13 | Outpatient (REF) | payer MEDICARE ==
[2025-02-13 13:53] LABS: BASO # 0.1 10^3/uL (0.0-0.2); BASO % 1.3 % (0.0-1.0); EOS # 0.2 10^3/uL (0.0-0.5); EOS % 2.5 % (0.0-3.0); LYMPH # 3.6 10^3/uL (1.5-5.0); LYMPH % 37.6 % (24.0-44.0); MONO # 0.8 10^3/uL (0.0-0.8); MONO % 8.6 % (2.0-8.0); NEUTROPHILS # 4.7 10^3/uL (1.5-8.5); NEUTROPHILS % 49.7 % (36.0-66.0); PLATELET COUNT, AUTOMATED 205 10^3/uL (150-450)
[2025-02-13 13:54] LABS: ALT/SGPT 17.0 U/L (7.0-40); AST/SGOT 17.0 U/L (<34); CALCIUM LEVEL 8.8 MG/DL (8.3-10.6); CARBON DIOXIDE LEVEL 26.0 MMOL/L (20-31); CHLORIDE LEVEL 102.0 MMOL/L (98-107); CREATININE FOR GFR 1.52 MG/DL (0.70-1.30); GLOMERULAR FILTRATION RATE 46.3 (>42); POTASSIUM SERUM 3.8 MMOL/L (3.5-5.1); SODIUM LEVEL 138.0 MMOL/L (136-145)
== END ==
LOC: M LAB REF 12:10
PROVIDERS: ATTEND Internal Medicine Hematology & Oncology
DX: C91.10 Chronic lymphocytic leukemia of B-cell type not having achieved remission (principal)

== ENCOUNTER → 2025-02-13 | Outpatient (REF) | payer MEDICARE ==
[2025-02-13 13:46] LABS: APPEARANCE, URINE CLEAR (CLEAR); BACTERIA, URINE AUTO 1+ (NEGATIVE); BILIRUBIN, URINE AUTO NEGATIVE (NEGATIVE); BLOOD, URINE BLOOD 1+ (NEGATIVE); GLUCOSE, URINE (UA) AUTO NEGATIVE (NEGATIVE); KETONE, URINE AUTO NEGATIVE (NEGATIVE); LEUKOCYTE ESTERASE, URINE AUTO NEGATIVE (NEGATIVE); MUCUS, URINE SMALL (NEGATIVE); NITRITE, URINE AUTO NEGATIVE (NEGATIVE); PROTEIN, URINE AUTO 1+ mg/dL (NEGATIVE); RBC, URINE AUTO 1 /HPF (0-3); SPECIFIC GRAVITY URINE AUTO 1.017 (1.002-1.035); SQUAMOUS EPITHELIAL CELL UR AU 0 /HPF (0-6); UROBILINOGEN, URINE AUTO 0.2 mg/dL (0.0-2.0); WBC, URINE AUTO 1 /HPF (0-3)
== END ==
LOC: M SFHCCLAY 07:34
PROVIDERS: ATTEND Physician Assistant
DX: R97.20 Elevated prostate specific antigen [PSA] (principal); Z87.898 Personal history of other specified conditions; C91.10 Chronic lymphocytic leukemia of B-cell type not having achieved remission

== ENCOUNTER → 2025-02-17 | Outpatient (CLI) | payer MEDICARE | LOC: M CLY 13:42 | PROVIDERS: ATTEND Internal Medicine Hematology & Oncology | DX: M25.512 Pain in left shoulder (principal) ==

== ENCOUNTER → 2025-03-19 | Outpatient (REF) | payer MEDICARE ==
[2025-03-19 13:25] LABS: BASO # 0.1 10^3/uL (0.0-0.2); BASO % 1.1 % (0.0-1.0); EOS # 0.2 10^3/uL (0.0-0.5); EOS % 2.1 % (0.0-3.0); LYMPH # 3.2 10^3/uL (1.5-5.0); LYMPH % 36.6 % (24.0-44.0); MONO # 0.8 10^3/uL (0.0-0.8); MONO % 9.5 % (2.0-8.0); NEUTROPHILS # 4.5 10^3/uL (1.5-8.5); NEUTROPHILS % 50.4 % (36.0-66.0); PLATELET COUNT, AUTOMATED 221 10^3/uL (150-450)
[2025-03-19 13:43] LABS: ALT/SGPT 13.0 U/L (7.0-40); AST/SGOT 14.0 U/L (<34); CALCIUM LEVEL 8.8 MG/DL (8.3-10.6); CARBON DIOXIDE LEVEL 26.0 MMOL/L (20-31); CHLORIDE LEVEL 101.0 MMOL/L (98-107); CREATININE FOR GFR 1.39 MG/DL (0.70-1.30); GLOMERULAR FILTRATION RATE 51.6 (>42); IRON (FE) 63.0 UG/DL (65-175); PERCENT SATURATION 21.4 % (19.7-50.0); POTASSIUM SERUM 3.7 MMOL/L (3.5-5.1); SODIUM LEVEL 138.0 MMOL/L (136-145)
[2025-03-19 13:44] LABS: VITAMIN B12 LEVEL 1353.0 PG/ML (211-911)
== END ==
LOC: M LABDRAWC 12:04
PROVIDERS: ATTEND Internal Medicine Hematology & Oncology
DX: C92.10 Chronic myeloid leukemia, BCR/ABL-positive, not having achieved remission (principal)

== ENCOUNTER → 2025-03-24 | Outpatient (REF) | payer MEDICARE ==
[2025-03-24 17:58] LABS: ALT/SGPT 15.0 U/L (7.0-40); AST/SGOT 10.0 U/L (<34); CALCIUM LEVEL 8.4 MG/DL (8.3-10.6); CARBON DIOXIDE LEVEL 24.0 MMOL/L (20-31); CHLORIDE LEVEL 98.0 MMOL/L (98-107); CREATININE FOR GFR 1.63 MG/DL (0.70-1.30); GLOMERULAR FILTRATION RATE 42.6 (>42); POTASSIUM SERUM 3.5 MMOL/L (3.5-5.1); SODIUM LEVEL 136.0 MMOL/L (136-145)
[2025-03-24 18:02] LABS: FREE T4 1.49 NG/DL (0.89-1.76)
[2025-03-24 18:34] LABS: ESTIMATED AVERAGE GLUCOSE 148.0 MG/DL (60-110)
== END ==
LOC: M SFHCCLAY 09:14
PROVIDERS: ATTEND Nurse Practitioner Family
DX: E11.8 Type 2 diabetes mellitus with unspecified complications (principal); Z86.73 Personal history of transient ischemic attack (TIA), and cerebral infarction without residual deficits; J43.9 Emphysema, unspecified; H81.10 Benign paroxysmal vertigo, unspecified ear; E78.5 Hyperlipidemia, unspecified; I11.9 Hypertensive heart disease without heart failure; I48.11 Longstanding persistent atrial fibrillation; C91.10 Chronic lymphocytic leukemia of B-cell type not having achieved remission; E03.9 Hypothyroidism, unspecified; G47.33 Obstructive sleep apnea (adult) (pediatric); N40.0 Benign prostatic hyperplasia without lower urinary tract symptoms; Z23 Encounter for immunization

== ENCOUNTER → 2025-05-16 | Outpatient (REF) | payer MEDICARE ==
[2025-05-16 12:58] LABS: BASO # 0.1 10^3/uL (0.0-0.2); BASO % 1.0 % (0.0-1.0); EOS # 0.2 10^3/uL (0.0-0.5); EOS % 2.0 % (0.0-3.0); LYMPH # 2.7 10^3/uL (1.5-5.0); LYMPH % 29.0 % (24.0-44.0); MONO # 1.0 10^3/uL (0.0-0.8); MONO % 11.0 % (2.0-8.0); NEUTROPHILS # 5.3 10^3/uL (1.5-8.5); NEUTROPHILS % 56.6 % (36.0-66.0); PLATELET COUNT, AUTOMATED 228 10^3/uL (150-450)
[2025-05-16 13:31] LABS: ALT/SGPT 15.0 U/L (7.0-40); AST/SGOT 14.0 U/L (<34); CALCIUM LEVEL 8.5 MG/DL (8.3-10.6); CARBON DIOXIDE LEVEL 28.0 MMOL/L (20-31); CHLORIDE LEVEL 97.0 MMOL/L (98-107); CREATININE FOR GFR 1.74 MG/DL (0.70-1.30); GLOMERULAR FILTRATION RATE 39.4 (>42); IRON (FE) 44.0 UG/DL (65-175); PERCENT SATURATION 15.6 % (19.7-50.0); POTASSIUM SERUM 3.5 MMOL/L (3.5-5.1); SODIUM LEVEL 135.0 MMOL/L (136-145)
[2025-05-16 13:33] LABS: VITAMIN B12 LEVEL 1848.0 PG/ML (211-911)
== END ==
LOC: M LABDRAWC 12:14
PROVIDERS: ATTEND Internal Medicine Hematology & Oncology
DX: C91.10 Chronic lymphocytic leukemia of B-cell type not having achieved remission (principal)